=== PATIENT | female | born 1935 | race Caucasian/White ===

== ENCOUNTER → 2016-07-02 | Outpatient (CLI) | payer OTHER ==
[~2016-07-02] MED LIST: ASPI81TA28 PO; ATEN50TA8 PO; ATOR10TA82 PO; BROM0.0911 OPR; CALC1CHW2 PO; CITA10TA8 PO; CMD5 PO; COEN100C3 PO; GATI0.5S OPR; HYDR25TA5 PO; LOSA50TA6 PO; MAGN1CAP4 PO; MGNO400 PO; PRED1SUS3 OPR; WARF1TAB PO
[2016-07-02 13:17] LABS: ALT/SGPT 27 U/L (12-78); BLOOD UREA NITROGEN 17 mg/dl (7-18); BUN/CREATININE RATIO 15.5 (10-20); CARBON DIOXIDE 31 mmol/L (21-32); CHLORIDE 103 mmol/L (98-107); CHOLESTEROL 148 mg/dl (0-200); GLUCOSE 111 mg/dl (70-99); POTASSIUM 3.5 mmol/L (3.5-5.1); SODIUM 141 mmol/L (136-145); TRIGLYCERIDES 135 mg/dl (0-150); VERY LOW DENSITY LIPOPROT CALC 27 mg/dl
[2016-07-02 13:30] LABS: ALB/GLOB RATIO 1.2 (0.9-2); ALKALINE PHOSPHATASE 60 U/L (45-117); AST/SGOT 20 U/L (15-37); CHOLESTEROL/HDL RATIO 2.6; HDL CHOLESTEROL 58 mg/dl; LDL CHOLESTEROL CALCULATED 63 mg/dl
[2016-07-02 14:48] LABS: ESTIMATED AVERAGE GLUCOSE 134 mg/dl; HA1C FLAG Normal (Normal)
--- NOTE | 2016-07-08 11:23 | CODING QUERY MEDICAL NECESSITY ---
SUPPORTING DIAGNOSIS NEEDED Dr. Shah, A supporting diagnosis is required for the test/procedure performed on this patient in order for us to be reimbursed by the patient's insurance. Please provide a supporting diagnosis for the following test/procedure listed below next to the test name along with your signature. *If there is no additional diagnosis for this patient that would support the following test/procedure please document that below next to the test/procedure. Test(s)/Procedure(s) that require a supporting diagnosis: * [id number] GLYCATED HEMOGLOBIN DIAGNOSIS: DATE OF SERVICE: 07/02/16 Provider Signature: Date: Thank you Zhen Boudreaux [facility] Information Management Once completed, please kindly fax back to [phone] For questions please call [phone]
== END | disposition home or self-care (01) ==
LOC: C.LABMFLN 10:10
PROVIDERS: ATTEND Family Medicine
DX: E78.00 Pure hypercholesterolemia, unspecified (principal); I10 Essential (primary) hypertension; R73.03 Prediabetes; E83.42 Hypomagnesemia; M81.0 Age-related osteoporosis without current pathological fracture

== ENCOUNTER → 2016-07-15 | Outpatient (CLI) | payer OTHER | LOC: C.LABMFLN 08:48 | PROVIDERS: ATTEND Family Medicine | DX: R35.0 Frequency of micturition (principal) ==

== ENCOUNTER → 2016-08-01 | Outpatient (CLI) | payer OTHER ==
[2016-08-01 13:36] LABS: URINE APPEARANCE CLEAR (CLEAR); URINE BILIRUBIN NEG (NEG); URINE COLOR YELLOW; URINE EPITHELIAL CELL AUTO 20-30 /lpf (0-5); URINE NITRITE NEG (NEG); URINE SPECIFIC GRAVITY 1.015 (1.000-1.030); UROBILINOGEN NEG (NEG)
[2016-08-01 13:43] LABS: MANUAL MICROSCOPIC REQUIRED? NO; REVIEW REQ? NO
== END | disposition home or self-care (01) ==
LOC: C.LABMFLN 08:18
PROVIDERS: ATTEND Family Medicine
DX: R31.0 Gross hematuria (principal)

== ENCOUNTER → 2016-12-23 | Day surgery (SDC) | payer OTHER ==
[~2016-12-23] VITALS: Ht 157.5 cm; Wt 74.0 kg
[~2016-12-23] MED LIST changes: +FENTANYL CITRATE INJ 50 MCG/1 ML 2 ML VIAL ONE; +HEPARIN SOD (PORCINE) 1000 UNIT/ML 10 ML VIAL ONE; -MGNO400 PO; +MIDAZOLAM HCL 1 MG/ML 2ML VIAL ONE; +NITROGLYCERIN/D5W 100MCG/ML 20ML SYR ONE; +NiCARDipine HCL INJ 2.5 MG/ML 10 ML AMP ONE
[2016-12-23 10:10] VITALS: BP 170/89; PULSE 71; TEMP 36.4; O2SAT 96; Ht 157.5 cm; Wt 74.0 kg
--- NOTE | 2016-12-23 13:00 | History & Physical Bridge Note ---
H&P Re-Evaluation Bridge Note: I have examined the patient, reviewed the History & Physical and in the interval since the performance of the History & Physical I have noted the following changes of clinical significance: No changes noted
--- NOTE | 2016-12-23 13:01 | Procedure Note ---
Pre-Mod Sedation Assessment General Date of Moderate Sedation: Dec 23, 2016. Vital Signs: Vital Signs Past 12 Hours Date Time Temp Pulse Resp B/P (MAP) Pulse Ox O2 Delivery O2 Flow Rate FiO2 12/23/16 10:10 36.4 71 18 170/89 96 Room Air Review Cardiovascular: regular rate, rhythm, no edema Abdomen: normal bowel sounds, non tender Lungs: chest non-tender, lungs clear Airway Class: III Pre-Sedation Airway Assessment Oral Cavity: Capped Teeth Able to Visualize Vocal Cords: No Short Thick Neck: No Hx of Sleep Apnea: No Smoking Status: Never Smoker Mallampati Classification: Class III ASA Classification: Class III Procedure Planning Contraindications-for Mod Sed: None Yes Notes The planned sedation has been discussed with the patient and consent obtained. I have identified the patient, determined the appropriateness of sedation and have assessed the patient immediately prior to the procedure. All medicine(s) and interventions are by my order.
--- NOTE | 2016-12-23 13:38 | Procedure Note ---
Post-Mod Sedation Assessment General Date of Moderate Sedation Dec 23, 2016. Vital Signs: Vital Signs Past 12 Hours Date Time Temp Pulse Resp B/P (MAP) Pulse Ox O2 Delivery O2 Flow Rate FiO2 12/23/16 13:25 73 16 139/77 (97) 96 Room Air 12/23/16 10:10 36.4 71 18 170/89 96 Room Air Review - Discharge Criteria Vital Signs Stable: Yes Alert/Oriented/Conversant: Yes Returned to Baseline Mental St: Yes Nausea Absent/Minimal: Yes Pain/Discomfort/Absent/Minimal: Yes Normal/Baseline Respirations: Yes Active Bleeding?: No Pt Received D/C Instructions: No Prescriptions Given: None Specific Proced. D/C Criteria Distal Pulses Present (Cardiac: Yes Groin site assessed-Card Cath: N/A Voided Prior To Discharge: N/A Discharged Patients Adult Escort/Transportation: Yes
--- NOTE | 2016-12-23 13:45 | Cardiac Catheterization ---
Procedure Note Procedure Date Dec 23, 2016. Pre-Procedure Diagnosis Angina, Positive Stress Test AUC Score 7 Post-Procedure Diagnosis Normal Coronary Arteries, Normal LV Systolic Function, Normal Intracardiac Pressures Procedure(s) Performed Coronary Angiography, Left Heart Cath Actuarial Technician Antoine Manufacturing Automation Engineer(s) Matt Estimated Blood Loss 10 Medication(s) Fentanyl, Heparin, Versed, Lidocaine 1% Summary of Findings Indication: Abnormal stress test, atypical chest pain. Access: 6Fr slender right radial artery Catheters: Carlock, pigtail Findings: LM - Angiographically normal LAD - Moderate caliber vessel, mild diffuse distal disease as tapers to apex Circumflex - Moderate caliber, luminal irregularities. RCA - Dominant, luminal irregularities, mild disease in small PAV branch. LVEF 65%, no regional wall motion abnormalities. LVEDP - 16 Arterial Closure: TR Band Summary: 1. Mild non-obstructive coronary artery disease 2. Normal intracardiac filling pressure Recommendations: Continued ASCVD risk factor modification Further evaluation for non-cardiac causes of chest pain. Follow-up with Dr. Shah, Dr. Mo Hemodynamics Rest Ao: 135/72/100 Final Ao: 134/65/97 LV: 146/16 Recommendations Medical therapy and/or Counseling Specimens None Radiation Exposure (mGy) 911 Contrast (mls) 70 Visi Fluids (cc crystalloids) 10 NSS Drains None Anesthesia Moderate Procedural Complication(s) None Disposition Mobile Unit Assistant Holding/Recovery ACC Data Cardiac Status Clinical evaluation leading to the procedure CAD Presntation: Positive Stress Test Anginal Classification: CCS III Heart Failure: No, NYHA Class: CCS I Cardiogenic Shock w/in 24Hrs: No Cardiac Arrest w/in 24Hrs: No Imaging studies past 6 months: Yes Stress Testing w/SPECT MPI: Yes - Indeterminant Left Ventricular Angiography EF (%): 65 Mitral Regurgitation: None Aortography Aortic Regurgitation: None Closure Device Percutaneous Entry Location: Radial Closure Device: Radial Band Recommendations: Medical therapy and/or Counseling Intraprocedure Events Significant Dissection: No Perforation: No
--- NOTE | 2016-12-23 13:47 | Discharge Instructions ---
Discharge Instructions Procedure Procedure Date: Dec 23, 2016. Reason for Visit: Sob, *Dr Schultz Doing*. Discharge Discharge Date: Dec 23, 2016. Discharge Diagnosis: Non-cardiac chest pain Last Recorded Wt (Kilograms): 74 Anesthesia Post Anesthesia Instructions: If you have had General Anesthesia or IV Sedation: * Do not drive today. * Resume driving when surgeon permits. * Do not make important decisions or sign legal documents today. * Call surgeon for: 1. Temperature elevations greater than 101 degrees F. 2. Uncontrollable pain. 3. Excessive bleeding. 4. Persistent nausea and vomiting. 5. Medication intolerance (nausea, vomiting or rash). * For nausea and vomiting use only clear liquids such as: tea, soda, bouillon until nausea subsides, then gradually increase diet as tolerated. * If you have any concerns or questions, call your surgeon's office. If physician is unavailable and it is an emergency, call 911 or go to the nearest emergency room. Instructions Activity Recommendations: limitations as noted below Recommended Home Diet: resume previous diet Allergies: Coded Allergies: Amoxicillin (Verified Allergy, Intermediate, GI SYMPTOMS, 12/01/16) Lisinopril (Verified Allergy, Intermediate, COUGH, 12/01/16) Sulfa Antibiotics (Verified Allergy, Intermediate, RASH AND NAUSEA, ) Follow Up Additional Instructions: ACTIVITY RECOMMENDATIONS: It is common to feel weak and fatigue for a few days. * Do not drive or operate any motorized equipment for the next 2 days. * Limit stair usage (2 or 3 trips a day only) for the next 2 days. * Do not lift anything heavier than 10 pounds for the next three days. * Do not engage in vigorous exercise or any sports for the next five days. * You may shower the day after your procedure, but do not immerse the area for three days. Cleanse the site gently with soap and water. SPECIAL CARE INSTRUCTIONS: * You may replace the pressure dressing or band-aid the morning after the procedure. * After your procedure, it is normal to have a small bruise or small lump at the site. Examine your site daily for any change in the bruise or lump, redness, swelling, drainage or numbness. Notify your doctor if any change. BLEEDING: * If there is a small amount of bleeding at the site, lie down and apply firm pressure with a clean cloth for ten minutes. When the bleeding stops, lie quietly keeping the procedure limb straight for six hours. Notify your doctor as soon as possible. * If the bleeding does not stop after ten minutes or if there is a large amount of bleeding or spurting, call 911 immediately. Continue to lie down and hold firm pressure until help arrives. SKIN IRRITATION: * You may experience some redness and/or swelling in the area where radiation was administered. If any skin irritation occurs, please contact your family physician. FOLLOW UP VISIT: Keep any scheduled doctor appointments. Follow-up with: As scheduled with Dr. Shah/Dr. Chepe Melchor Recommendations: Call your doctor if: * Temperature above 101 degrees * Pain not relieved by pain medicine ordered * There is increased drainage or redness from any incision * You have any unanswered questions or concerns. Your Doctors Instructions noted above were prepared by provider Ben Schultz. Patient Signature Section: Patient Instructions Signature Page Cora Morrow Patient (or Guardian) Signature/Date: I have read and understand the instructions given to me by my caregivers. Caregiver/RN/Doctor Signature/Date: The above-named patient and/or guardian has received patient instructions on this date. + Original Patient Signature Page (only) stays with chart. Please make copy for patient.
[2016-12-23 16:00] VITALS: BP 154/68; PULSE 54; O2SAT 95
== END | disposition home or self-care (01) ==
LOC: C.CATH 09:11
PROVIDERS: ATTEND Internal Medicine Interventional Cardiology
DX: I20.9 Angina pectoris, unspecified (principal); I48.91 Unspecified atrial fibrillation; I10 Essential (primary) hypertension; R07.9 Chest pain, unspecified; F43.21 Adjustment disorder with depressed mood; M54.9 Dorsalgia, unspecified; G89.29 Other chronic pain; E78.00 Pure hypercholesterolemia, unspecified; M81.0 Age-related osteoporosis without current pathological fracture; E83.42 Hypomagnesemia; Z85.820 Personal history of malignant melanoma of skin; Z87.440 Personal history of urinary (tract) infections; Z90.710 Acquired absence of both cervix and uterus; Z96.649 Presence of unspecified artificial hip joint; Z79.82 Long term (current) use of aspirin

== ENCOUNTER → 2016-12-29 | Day surgery (SDC) | payer OTHER ==
[2016-12-01 10:44] VITALS: Ht 157.5 cm; Wt 72.7 kg
[~2016-12-29] VITALS: Ht 157.5 cm; Wt 72.7 kg
[~2016-12-29] MED LIST changes: +500ML BSS 0.3ML EPI 1:1000PF IRRIG ONE; +ACETAMINOPHEN 325 MG TAB PO PRN; +AMVISC PLUS 0.8ML SYRINGE INT OCU ONE; +ATROPINE SULFATE 0.1 MG/ML 5ML SYR IV PRN; +BRIMONIDINE TART 0.2% OP SOLN PER DROP CHARGE ONE; +BSS FLUSH ONE; +ENDOCOAT 0.85ML SYRINGE INT OCU ONE; +EpHEDrine SULFATE INJ 50 MG/ML AMP IV PRN; +EpINEphrine INJ 1MG/ML AMP 1 MG/ML AMP ONE; -FENTANYL CITRATE INJ 50 MCG/1 ML 2 ML VIAL ONE; -HEPARIN SOD (PORCINE) 1000 UNIT/ML 10 ML VIAL ONE; +LACTATED RINGER'S 1000ML 500 ML IV SCH; +LIDOCAINE 4% OP SOLN DROP CHARGE ONE; +LIDOCAINE 4% OP SOLN DROP CHARGE OPR SCH; +LIDOCAINE HCL 1% MPF 2 ML VIAL ONE; +MOXIFLOXACIN OPH SOLN PER DROP CHARGE ONE; -NITROGLYCERIN/D5W 100MCG/ML 20ML SYR ONE; -NiCARDipine HCL INJ 2.5 MG/ML 10 ML AMP ONE; +ONDANSETRON INJ 2 MG/ML 2 ML VIAL IV PRN; +POVIDONE-IODINE OP SOLN 30 ML BTL ONE; +PROPARACAINE 0.5% OP SOLN PER DROP CHARGE OPR SCH; +PROPARACAINE HCL 0.5% OP SOLN 15 ML BTL OPR ONE; +TOBRAMYCIN/DEXAMETHASONE OPH OINT PER APPLN CHARGE ONE
[2016-12-29] MEDS: PHENYLEPHRINE HCL 2.5% OP SOLN PER DROP CHARGE OPR SCH ×2 (08:39→08:44)
[2016-12-29] MEDS: TROPICAMIDE 1% OP SOLN PER DROP CHARGE OPR SCH ×2 (08:40→08:45)
[2016-12-29] MEDS: CYCLOPENTOLATE HCL 1% OP SOLN PER DROP CHARGE OPR SCH ×2 (08:41→08:46)
[2016-12-29] MEDS: KETOROLAC 0.5% OP SOLN PER DROP CHARGE OPR SCH ×2 (08:42→08:47)
[2016-12-29] MEDS: MOXIFLOXACIN OPH SOLN PER DROP CHARGE OPR SCH ×2 (08:43→08:53)
--- NOTE | 2016-12-29 10:33 | Discharge Instructions-SurgCtr ---
Discharge Instructions Date of Service Dec 29, 2016. Visit Reason for Visit: Cataract Right Eye Discharge Discharge Diagnosis / Problem: cataract right eye Discharge Goals Goal(s): Improve function Activity Recommendations Activity Limitations: per Instructions/Follow-up section Lifting Limitations: no more than 5 pounds Anesthesia . Post Anesthesia Instructions: If you have had General Anesthesia or IV Sedation: * Do not drive today. * Resume driving when surgeon permits. * Do not make important decisions or sign legal documents today. * Call surgeon for: 1. Temperature elevations greater than 101 degrees F. 2. Uncontrollable pain. 3. Excessive bleeding. 4. Persistent nausea and vomiting. 5. Medication intolerance (nausea, vomiting or rash). * For nausea and vomiting use only clear liquids such as: tea, soda, bouillon until nausea subsides, then gradually increase diet as tolerated. * If you have any concerns or questions, call your surgeon's office. If physician is unavailable and it is an emergency, call 911 or go to the nearest emergency room. . Instructions / Follow-Up Instructions / Follow-Up ACTIVITY RECOMMENDATIONS: * Light activities * You may walk outside, read, watch television. * Mild irritation and blurred vision are common for the first few days, redness around the white part of the eye is common. MEDICATIONS: Resume previous medications unless instructed otherwise by your surgeon. Eye drops (today and tomorrow): Gatifloxacin - one drop in operative eye every 2 hours while awake Prednisolone 1% - one drop in operative eye every 2 hours while awake Bromfenac - one drop in operative eye once daily SPECIAL CARE INSTRUCTIONS: * If any problems or concerns, please call Dr. Kirkpatrick's office at . * Keep plastic shield taped over eye to sleep at night. * Keep plastic shield taped over eye except to administer eye drops. * Keep plastic shield on until office visit the following day. FOLLOW UP VISIT: Follow-up with Dr. Kirkpatrick in the [place] office as scheduled. If not already scheduled, please call the office at . Diet Recommendations Home Diet: resume previous diet Procedures Procedures Performed: Right Cataract Phacoemulsification With Intraocular Lens Implant; Toric Lens Pending Studies Studies pending at discharge: no Medical Emergencies . Who to Call and When: Medical Emergencies: If at any time you feel your situation is an emergency, please call 911 immediately. . Non-Emergent Contact Non-Emergency issues call your: Club Car Attendant . . "Provider Documentation" section prepared by Rufus Kirkpatrick. .
[2016-12-29 10:34] VITALS: TEMP 36.1
--- NOTE | 2016-12-29 10:38 | [facility] Operative Report ---
Operative Report Operative Date Dec 29, 2016. Pre-Operative Diagnosis Right Eye Cataract Post-Operative Diagnosis Same Procedure(s) Performed Right Cataract Phacoemulsification With Intraocular Lens Implant; Toric Lens and femtosecond laser Surgeon Dr Kirkpatrick Software Engineer Kernel Surgeon(s) None Estimated Blood Loss 0ml Findings cataract right eye Fluids (cc crystalloids) see anesthesia record Specimens None Drains none Anesthesia local with sedation Complication(s) None Disposition Recovery Room / PACU Implants NATALEE [id number] 22.5 Indications decreased vision right eye Description of Procedure After informed consent was obtained in the holding area the patient was wheeled back to the femtosecond laser room where the right eye was docked with the laser. The laser performed the capsulorrhexis, prechop of the lens, and primary incision at the 9 o'clock position of the right eye. The patient was then taken to the operating room where cardiac monitoring leads and oxygen by nasal cannula was administered by Anesthesia. Gentle IV sedation was given, and the patient's right eye was prepped and draped in usual sterile fashion. A wire lid speculum was placed into the right eye and the operating microscope was swung into position. Using 0.12 forceps and a Supersharp blade a paracentesis port was made 2 o'clock hours away from the 9 o'clock position of the patient's right eye. 1% non-preserved Lidocaine was then injected into the anterior chamber for anesthesia. Endocoat was then injected into the anterior chamber. A 2.0 mm keratotome blade was then used to make a shelved clear corneal incision at the 9 o'clock position of the right eye. Amvisc was injected into the anterior chamber and a cystotome and Utrata forceps were used to perform a curvilinear capsulorrhexis. BSS on a hydrodissection cannula was used to hydrodissect the lens nucleus away from the capsular bag. The phacoemulsification handpiece was then used in a stop and chop fashion to remove the lens nucleus. The irrigation and aspiration handpiece was then used to remove the residual cortical material. Amvisc was injected into the capsular bag and anterior chamber and a NATALEE [id number] 22.5 Diopter intraocular lens was injected into the capsular bag. Irrigation and aspiration handpiece was used to remove the residual viscoelastic material. The lens was aligned along the 170 degree axis with corneal markings made in preop. The wounds were hydrated and noted to be watertight. The wire lid speculum was removed from the eye. Vigamox, Brimonidine, and TobraDex ointment were placed on the eye and it was shielded. It should be noted that EndoCoat was used extensively during the case to protect the cornea endothelium. DISPOSITION: The patient tolerated the procedure well and was wheeled to the post anesthesia care unit in stable condition. I attest to the content of the Intraoperative Record and any orders documented therein. Any exceptions are noted below. I attest to the content of the Intraoperative Record and any orders documented therein. Any exceptions are noted below.
[2016-12-29 10:52] VITALS: BP 135/85; PULSE 68; O2SAT 95
--- NOTE | 2016-12-29 11:14 | Anesthesia Progress Nt - [facility] ---
Anesthesia Post Op Note Date & Time Dec 29, 2016 at 11:14 Vital Signs Pain Intensity: 0 Vital Signs Past 12 Hours Date Time Temp Pulse Resp B/P (MAP) Pulse Ox O2 Delivery O2 Flow Rate FiO2 12/29/16 10:52 68 16 135/85 (102) 95 Room Air 12/29/16 10:34 36.1 90 16 139/83 (101) 95 Room Air 12/29/16 10:05 82 16 164/94 92 12/29/16 08:57 69 16 151/79 94 12/29/16 08:34 36.4 81 16 164/79 (107) 95 Room Air Notes Mental Status: alert / awake / arousable, participated in evaluation Pt Amnestic to Procedure: Yes Nausea / Vomiting: adequately controlled Pain: adequately controlled Airway Patency, RR, SpO2: stable & adequate BP & HR: stable & adequate Hydration State: stable & adequate Anesthetic Complications: no major complications apparent
== END | disposition home or self-care (01) ==
LOC: X.SURG 08:01
PROVIDERS: ATTEND Ophthalmology
DX: H25.11 Age-related nuclear cataract, right eye (principal); I10 Essential (primary) hypertension; E78.00 Pure hypercholesterolemia, unspecified; Z79.82 Long term (current) use of aspirin; Z79.899 Other long term (current) drug therapy

== ENCOUNTER → 2017-01-12 | Day surgery (SDC) | payer OTHER ==
[2017-01-07 15:03] VITALS: Ht 157.5 cm; Wt 72.7 kg
[~2017-01-12] VITALS: Ht 157.5 cm; Wt 72.7 kg
[~2017-01-12] MED LIST changes: -BROM0.0911 OPR; -GATI0.5S OPR; +LIDOCAINE 4% OP SOLN DROP CHARGE OPL SCH; -LIDOCAINE 4% OP SOLN DROP CHARGE OPR SCH; -ONDANSETRON INJ 2 MG/ML 2 ML VIAL IV PRN; -PRED1SUS3 OPR; +PROPARACAINE 0.5% OP SOLN PER DROP CHARGE OPL SCH; -PROPARACAINE 0.5% OP SOLN PER DROP CHARGE OPR SCH; +PROPARACAINE HCL 0.5% OP SOLN 15 ML BTL OPL ONE; -PROPARACAINE HCL 0.5% OP SOLN 15 ML BTL OPR ONE; -WARF1TAB PO
[2017-01-12] MEDS: PHENYLEPHRINE HCL 2.5% OP SOLN PER DROP CHARGE OPL SCH ×2 (07:23→07:28)
[2017-01-12] MEDS: TROPICAMIDE 1% OP SOLN PER DROP CHARGE OPL SCH ×2 (07:24→07:29)
[2017-01-12] MEDS: CYCLOPENTOLATE HCL 1% OP SOLN PER DROP CHARGE OPL SCH ×2 (07:25→07:30)
[2017-01-12] MEDS: KETOROLAC 0.5% OP SOLN PER DROP CHARGE OPL SCH ×2 (07:26→07:35)
[2017-01-12] MEDS: MOXIFLOXACIN OPH SOLN PER DROP CHARGE OPL SCH ×2 (07:27→07:37)
--- NOTE | 2017-01-12 08:50 | Discharge Instructions-SurgCtr ---
Discharge Instructions Date of Service Jan 12, 2017. Visit Reason for Visit: Cataract Left Eye Discharge Discharge Diagnosis / Problem: cataract left eye Discharge Goals Goal(s): Improve function Medications Stopped Medications Name(s): Only took two medications this morning. Activity Recommendations Activity Limitations: per Instructions/Follow-up section Lifting Limitations: no more than 5 pounds Anesthesia . Post Anesthesia Instructions: If you have had General Anesthesia or IV Sedation: * Do not drive today. * Resume driving when surgeon permits. * Do not make important decisions or sign legal documents today. * Call surgeon for: 1. Temperature elevations greater than 101 degrees F. 2. Uncontrollable pain. 3. Excessive bleeding. 4. Persistent nausea and vomiting. 5. Medication intolerance (nausea, vomiting or rash). * For nausea and vomiting use only clear liquids such as: tea, soda, bouillon until nausea subsides, then gradually increase diet as tolerated. * If you have any concerns or questions, call your surgeon's office. If physician is unavailable and it is an emergency, call 911 or go to the nearest emergency room. . Instructions / Follow-Up Instructions / Follow-Up ACTIVITY RECOMMENDATIONS: * Light activities * You may walk outside, read, watch television. * Mild irritation and blurred vision are common for the first few days, redness around the white part of the eye is common. MEDICATIONS: Resume previous medications unless instructed otherwise by your surgeon. Eye drops (today and tomorrow): Gatifloxacin - one drop in operative eye every 2 hours while awake Prednisolone 1% - one drop in operative eye every 2 hours while awake Bromfenac - one drop in operative eye once daily SPECIAL CARE INSTRUCTIONS: * If any problems or concerns, please call Dr. Kirkpatrick's office at . * Keep plastic shield taped over eye to sleep at night. * Keep plastic shield taped over eye except to administer eye drops. * Keep plastic shield on until office visit the following day. FOLLOW UP VISIT: Follow-up with Dr. Kirkpatrick in the [place] office as scheduled. If not already scheduled, please call the office at . Diet Recommendations Home Diet: resume previous diet Procedures Procedures Performed: Left Cataract Phacoemulsification With Intraocular Lens Implant; Toric Lens Pending Studies Studies pending at discharge: no Medical Emergencies . Who to Call and When: Medical Emergencies: If at any time you feel your situation is an emergency, please call 911 immediately. . Non-Emergent Contact Non-Emergency issues call your: Production Engineer Track . . "Provider Documentation" section prepared by Rufus Kirkpatrick. .
--- NOTE | 2017-01-12 08:55 | [facility] Operative Report ---
Operative Report Operative Date Jan 12, 2017. Pre-Operative Diagnosis Left eye cataract Post-Operative Diagnosis Same as preop Procedure(s) Performed Left Cataract Phacoemulsification With Intraocular Lens Implant; Toric Lens and femtosecond laser Surgeon Dr. Kirkpatrick Thoracic Surgeon Surgeon(s) None Estimated Blood Loss 0 mL Findings cataract left eye Fluids (cc crystalloids) see anesthesia record Specimens None Drains none Anesthesia local with sedation Complication(s) None Disposition Recovery Room / PACU Implants NATALEE [id number] 23.0 Indications decreased vision left eye Description of Procedure After informed consent was obtained in the holding area the patient was wheeled back to the femtosecond laser room where the left eye was docked with the femtosecond laser. The primary incision at the 3 o'clock position of the left eye as well as the capsulorrhexis and prechop of the lens was performed by the laser. The patient was then taken to the operating room where cardiac monitoring leads and oxygen by nasal cannula was administered by Anesthesia. Gentle IV sedation was given, and the patient's left eye was prepped and draped in usual sterile fashion. A wire lid speculum was placed into the left eye and the operating microscope was swung into position. Using 0.12 forceps and a Supersharp blade a paracentesis port was made 2 o'clock hours away from the 3 o'clock position of the patient's left eye. 1% non-preserved Lidocaine was then injected into the anterior chamber for anesthesia. Endocoat was then injected into the anterior chamber. A Scott spatula was then used to enter the corneal incision at the 3 o'clock position of the left eye. Amvisc was injected into the anterior chamber and Utrata forceps were used to remove the curvilinear capsulorrhexis. BSS on a hydrodissection cannula was used to hydrodissect the lens nucleus away from the capsular bag. The phacoemulsification handpiece was then used in a stop and chop fashion to remove the lens nucleus. The irrigation and aspiration handpiece was then used to remove the residual cortical material. Amvisc was injected into the capsular bag and anterior chamber and a NATALEE [id number] 23.0 Diopter intraocular lens was injected into the capsular bag. Irrigation and aspiration handpiece was used to remove the residual viscoelastic material. The lens was aligned with preop corneal markings along the 4 degree axis. The wounds were hydrated and noted to be watertight. The wire lid speculum was removed from the eye. Vigamox, Brimonidine, and TobraDex ointment were placed on the eye and it was shielded. It should be noted that EndoCoat was used extensively during the case to protect the cornea endothelium. DISPOSITION: The patient tolerated the procedure well and was wheeled to the post anesthesia care unit in stable condition. I attest to the content of the Intraoperative Record and any orders documented therein. Any exceptions are noted below. I attest to the content of the Intraoperative Record and any orders documented therein. Any exceptions are noted below.
[2017-01-12 09:05] VITALS: BP 164/92; PULSE 66; TEMP 36.4; O2SAT 95
--- NOTE | 2017-01-12 09:09 | Anesthesia Progress Nt - [facility] ---
Anesthesia Post Op Note Date & Time Jan 12, 2017 at 09:09 Vital Signs Pain Intensity: 0 Vital Signs Past 12 Hours Date Time Temp Pulse Resp B/P (MAP) Pulse Ox O2 Delivery O2 Flow Rate FiO2 01/12/17 09:05 36.4 66 20 164/92 (116) 95 Room Air 01/12/17 08:52 36.3 75 16 145/83 (103) 97 Room Air 01/12/17 08:19 67 93 117/83 18 01/12/17 08:11 68 93 163/92 16 01/12/17 07:09 36.5 66 18 150/91 (110) 97 Room Air Notes Mental Status: alert / awake / arousable, participated in evaluation Pt Amnestic to Procedure: Yes Nausea / Vomiting: adequately controlled Pain: adequately controlled Airway Patency, RR, SpO2: stable & adequate BP & HR: stable & adequate Hydration State: stable & adequate Anesthetic Complications: no major complications apparent
== END | disposition home or self-care (01) ==
LOC: X.SURG 06:55
PROVIDERS: ATTEND Ophthalmology
DX: H26.9 Unspecified cataract (principal); I10 Essential (primary) hypertension; I48.91 Unspecified atrial fibrillation; E78.00 Pure hypercholesterolemia, unspecified; Z90.710 Acquired absence of both cervix and uterus; Z96.642 Presence of left artificial hip joint; Z85.828 Personal history of other malignant neoplasm of skin; Z88.0 Allergy status to penicillin; Z88.2 Allergy status to sulfonamides

== ENCOUNTER → 2017-02-06 | Outpatient (CLI) | payer OTHER ==
[~2017-02-06] MED LIST changes: -500ML BSS 0.3ML EPI 1:1000PF IRRIG ONE; -ACETAMINOPHEN 325 MG TAB PO PRN; -AMVISC PLUS 0.8ML SYRINGE INT OCU ONE; -ATROPINE SULFATE 0.1 MG/ML 5ML SYR IV PRN; -BRIMONIDINE TART 0.2% OP SOLN PER DROP CHARGE ONE; -BSS FLUSH ONE; -ENDOCOAT 0.85ML SYRINGE INT OCU ONE; -EpHEDrine SULFATE INJ 50 MG/ML AMP IV PRN; -EpINEphrine INJ 1MG/ML AMP 1 MG/ML AMP ONE; -LACTATED RINGER'S 1000ML 500 ML IV SCH; -LIDOCAINE 4% OP SOLN DROP CHARGE ONE; -LIDOCAINE 4% OP SOLN DROP CHARGE OPL SCH; -LIDOCAINE HCL 1% MPF 2 ML VIAL ONE; -MIDAZOLAM HCL 1 MG/ML 2ML VIAL ONE; -MOXIFLOXACIN OPH SOLN PER DROP CHARGE ONE; -POVIDONE-IODINE OP SOLN 30 ML BTL ONE; -PROPARACAINE 0.5% OP SOLN PER DROP CHARGE OPL SCH; -PROPARACAINE HCL 0.5% OP SOLN 15 ML BTL OPL ONE; -TOBRAMYCIN/DEXAMETHASONE OPH OINT PER APPLN CHARGE ONE
[2017-02-06 18:03] LABS: BASO % 0.5 %; BASO ABS # 0.03 K/uL (0-0.2); COMPLETE YES; EOS % 1.4 %; IG% 0.8 %; LYMPH % 21.8 %; LYMPH ABS # 1.39 K/uL (1.2-3.4); MEAN CELL VOLUME 94.1 fL (80-100); MEAN CORPUSCULAR HEMOGLOBIN 31.8 pg (25-34); MEAN CORPUSCULAR HGB CONC 33.8 g/dl (32-36); MEAN PLATELET VOLUME 9.6 fL (7.4-10.4); MONO % 13.7 %; NEUT % 61.8 %; PLATELET COUNT 346 K/uL (130-400); RED BLOOD COUNT 3.93 M/uL (4.2-5.4); WHITE BLOOD COUNT 6.37 K/uL (4.8-10.8)
== END | disposition home or self-care (01) ==
LOC: C.LABMFLN 16:04
PROVIDERS: ATTEND Family Medicine
DX: I48.91 Unspecified atrial fibrillation (principal)

== ENCOUNTER → 2017-07-02 | Outpatient (CLI) | payer OTHER ==
[2017-07-02 17:50] LABS: BASO % 0.3 %; BASO ABS # 0.02 K/uL (0-0.2); EOS % 2.1 %; EOS ABS # 0.15 K/uL (0-0.5); HEMATOCRIT 39.7 % (37-47); HEMOGLOBIN 13.4 g/dL (12.0-16.0); IG# 0.02 K/uL (0.00-0.02); LYMPH % 24.5 %; LYMPH ABS # 1.74 K/uL (1.2-3.4); MEAN CELL VOLUME 95.7 fL (80-100); MEAN CORPUSCULAR HEMOGLOBIN 32.3 pg (25-34); MEAN CORPUSCULAR HGB CONC 33.8 g/dl (32-36); MEAN PLATELET VOLUME 10.4 fL (7.4-10.4); MONO % 14.1 %; NEUT % 58.7 %; NEUT ABS # 4.18 K/uL (1.4-6.5); PLATELET COUNT 206 K/uL (130-400); RED CELL DISTRIBUTION WIDTH SD 45.4 fL (36.4-46.3); WHITE BLOOD COUNT 7.11 K/uL (4.8-10.8)
[2017-07-02 18:35] LABS: ALBUMIN 3.4 gm/dl (3.4-5.0); ALT/SGPT 41 U/L (12-78); AST/SGOT 28 U/L (15-37); BLOOD UREA NITROGEN 17 mg/dl (7-18); CALCIUM 9.3 mg/dl (8.5-10.1); CARBON DIOXIDE 32 mmol/L (21-32); CHOLESTEROL 119 mg/dl (0-200); CREATININE 1.04 mg/dl (0.60-1.20); GLUCOSE 79 mg/dl (70-99); POTASSIUM 3.6 mmol/L (3.5-5.1); SODIUM 136 mmol/L (136-145)
[2017-07-02 18:39] LABS: ALKALINE PHOSPHATASE 55 U/L (45-117); LDL CHOLESTEROL CALCULATED 45 mg/dl; TOTAL PROTEIN 6.6 gm/dl (6.4-8.2)
== END | disposition home or self-care (01) ==
LOC: C.LABMFLN 13:27
PROVIDERS: ATTEND Family Medicine
DX: E78.00 Pure hypercholesterolemia, unspecified (principal); I10 Essential (primary) hypertension; R73.03 Prediabetes; E83.42 Hypomagnesemia; I48.91 Unspecified atrial fibrillation

== ENCOUNTER → 2017-10-26 | Outpatient (CLI) | payer OTHER ==
[2017-10-26 13:00] LABS: ALBUMIN 3.3 gm/dl (3.4-5.0); ALKALINE PHOSPHATASE 60 U/L (45-117); ALT/SGPT 48 U/L (12-78); AST/SGOT 29 U/L (15-37); BLOOD UREA NITROGEN 19 mg/dl (7-18); CARBON DIOXIDE 31 mmol/L (21-32); CHOLESTEROL 117 mg/dl (0-200); GLUCOSE 103 mg/dl (70-99); LDL CHOLESTEROL CALCULATED 52 mg/dl; POTASSIUM 3.5 mmol/L (3.5-5.1); SODIUM 142 mmol/L (136-145); TOTAL PROTEIN 6.3 gm/dl (6.4-8.2)
[2017-10-26 13:18] LABS: HEMOGLOBIN A1C 6.5 % (4.5-5.6)
== END | disposition home or self-care (01) ==
LOC: C.LABMFLN 08:06
PROVIDERS: ATTEND Family Medicine
DX: E78.00 Pure hypercholesterolemia, unspecified (principal); I10 Essential (primary) hypertension; R73.03 Prediabetes; E83.42 Hypomagnesemia; I48.91 Unspecified atrial fibrillation

== ENCOUNTER 2020-05-09 06:44 | Observation (INO) ==
--- NOTE | 2020-05-04 10:20 | Anesthesiology Consultation ---
Date of Service May 04, 2020 Assessment & Plan (1) Encounter for pre-operative examination: Case was originally scheduled for 02/13/2021, rescheduled to 05/09/2020 due to COVID-19 pandemic and surge capacity protocols. Patient was seen by me in PAT 01/13/2020. COVID Status: As of 05/02 nurse assessment, patient denies travel to endemic area, known exposure/sick contacts, or symptoms of COVID19. Patient is a resident at [facility], and resides in a cottage. Spoke to the facility, they have 1-2 cases of COVID currently in the main building, but since the patient resides in a cottage she would have no interaction with anyone in the main facility (no communal dining). Preoperative COVID19 testing completed on 05/03 at [facility] results pending. PCP Clearance 05/02/20: 1. For R total hip replacement by Dr. Jaime Molina on Thursday [sic]. Take just the atenolol with a small sip of water the morning of the surgery. You are to get a Covid test tomorrow with repeat blood work. 2. For the L shoulder pain the safest medication is Acetaminophen 650 mg 2 pills 2 x daily as needed. Could substitute 1 or 2 of the Tylenol PM at bedtime. Another alternative would be to take Benadryl which is the same as diphenhydramine 25 mg 1 or 2 pills at bedtime along with your Tylenol arthritis. 3. For the a fib and coronary artery disease these are stable. There is tricuspid valve regurgitation or backflow. Dr. Eddy is following this with the echocardiograms. 4. For the diet-controlled diabetes and cholesterol the labs look good on November 14. We will recheck hemoglobin A1C with labs for Dr. Wolf tomorrow [A1C stable at 7.1%] 5. For blood pressure was well controlled after sitting. Continue the losartan and HCT. 6. Follow-up in mid May to make sure you are doing well after your hip surgery. Please call sooner if any problems or worsening." Chart Review Chart Review: Acceptable Risk for Surgery and data entry representative initiated History Surgery Operation Date: 05/09/20 08:50 Proposed Procedures p Right Total Hip Arthroplasty - Star Wolf MD Height/Weight Height: 5 ft 2 in Weight: 76.657 kg Allergies Allergy/AdvReac Type Severity Reaction Status Date / Time Sulfa (Sulfonamide Allergy Intermediate RASH AND Verified 05/09/20 07:22 Antibiotics) NAUSEA amoxicillin AdvReac Intermediate GI SYMPTOMS Verified 05/09/20 07:22 lisinopril AdvReac Intermediate COUGH Verified 05/09/20 07:22 citalopram AdvReac severe Verified 05/09/20 07:22 fatigue Medications Home Medications Medication Instructions Recorded Confirmed Last Taken atorvastatin 10 mg PO HS 01/10/20 05/09/20 05/08/20 19:00 calcium carbonate-vitamin D3 1 tab PO QAM 01/10/20 05/09/20 05/08/20 09:00 [Calcium 500 With D] hydrochlorothiazide 25 mg PO QA 01/10/20 05/09/20 05/08/20 09:00 losartan 100 mg PO QAM 01/10/20 05/09/20 05/08/20 09:00 magnesium oxide 400 mg PO QA 01/10/20 05/09/20 05/08/20 09:00 potassium chloride 10 meq PO [facility] 01/10/20 05/09/20 05/08/20 09:00 niacinamide 500 mg tablet 500 mg PO BID 01/13/20 05/09/20 05/08/20 17:00 apixaban 5 mg tablet 5 mg PO BID #180 tab 03/29/20 05/09/20 05/04/20 atenolol 100 mg tablet 100 mg PO BID #180 tab 03/29/20 05/09/20 05/09/20 05:00 duloxetine 30 mg PO QAM 05/02/20 05/09/20 05/08/20 09:00 Active Medications Generic Name Dose Route Start Last Admin Trade Name Freq PRN Reason Stop Dose Admin Acetaminophen 1,000 mg 05/09/20 06:00 05/09/20 07:59 Acetaminophen 500 Mg Tab PO 05/09/20 18:00 1,000 mg PREOP BUBBA Administration Famotidine 20 mg 05/09/20 06:00 05/09/20 07:58 Famotidine 20 Mg Tab PO 05/09/20 18:00 20 mg PREOP BUBBA Administration Gabapentin 300 mg 05/09/20 06:00 05/09/20 07:59 Gabapentin 300 Mg Cap PO 05/09/20 18:00 300 mg PREOP BUBBA Administration Lactated Ringer's 1,000 mls @ 15 mls/hr 05/09/20 06:00 05/09/20 07:38 Lr IV 05/09/20 18:00 15 mls/hr .Q24H BUBBA Administration Lactated Ringer's 1,000 mls @ 60 mls/hr 05/09/20 06:00 05/09/20 07:08 Lr IV 05/09/20 22:39 Not Given .[id number] BUBBA Metoclopramide HCl 10 mg 05/09/20 06:00 05/09/20 07:58 Metoclopramide Hcl 10 Mg Tablet PO 05/09/20 18:00 10 mg PREOP BUBBA Administration Past Medical History Medical History Adjustment disorder with depressed mood Atrial fibrillation Permanent. On eliquis - follows w/ dr. eddy Benign essential hypertension CAD (coronary artery disease) s/p cardiac cath 2017 @ [facility], "Mild non-obstructive coronary artery disease" Chronic back pain Controlled diabetes mellitus PCP monitoring, "diet controlled." Degenerative joint disease of right hip Herniated intervertebral disc History of basal cell carcinoma History of SCC (squamous cell carcinoma) of skin Hyperlipidemia Osteoarthritis of right hip Osteoporosis Tricuspid valve insufficiency MODERATE-SEVERE ON 01/2019 ECHO. Asymptomatic. Cardio monitoring, will rpt echo ~04/2020 Urinary incontinence Past Family History Family History Mother Diabetes Cerebral infarction Hypertension Brother Diabetes Hypertension Other No family history of adverse response to anesthesia Past Surgical History Surgical History History of cardiac catheterization 2016 [facility] no stents History of cataract surgery History of cholecystectomy History of colonoscopy History of hysterectomy History of left hip replacement History of Mohs micrographic surgery for skin cancer History of tonsillectomy History of tooth extraction History of tubal ligation Social History Smoking Status: Never smoker Do You Dip or Chew Tobacco: No Hx Alcohol Use: Yes Alcohol type: wine alcohol intake frequency: holidays/special occasions only Hx Substance Use: No substance use type: does not use Physical Exam Vital Signs Last Vital Signs Temp 36.5 C 05/09/20 07:13 Pulse 94 H 05/09/20 07:13 Resp 18 05/09/20 07:13 BP 177/98 H 05/09/20 07:55 Pulse Ox 98 05/09/20 07:13 Testing Laboratory Results Blood Type A Positive 05/03/20 08:12 Antibody Screen NEGATIVE 05/03/20 08:12 05/03/20 WBC: 5.73 H/H: 13.7/40.7 PLATELETS: 239 SODIUM: 141 POTASSIUM: 3.6 CHLORIDE: 105 CO2: 29 BUN: 21 CREATININE: 1.32 GLUCOSE: 125 PT: 10.8 PTT: 28.5 INR: 1.1 A1C: 7.1% Electrocardiogram Date: 01/13/20 Findings: + AFIB @ (77bpm) Chest X-Ray Date: 01/13/20 Findings: + NAD Other Testing Echocardiogram Date: 02/08/19 EF: 60-65% Normal LV size and systolic function. No regional wall motion abnormalities. Mild concentric LVH. Mildly dilated right ventricle. Moderate biatrial dilation. Mild mitral regurgitation. Moderate to severe tricuspid regurgitation. Top-normal right ventricular systolic pressure at 36 mmHg. No prior study available for cytocide comparison. Stress Test Date: 01/13/18 Type: nuclear SUMMARY: 1. Normal myocardial perfusion with no exercise/Lexiscan induced ischemia. 2. Normal LV size and function. LVEF 77 % with no regional wall motion abnormalities. 3. Non-diagnostic stress ECG due to inability to reach target HR with exercise/Lexiscan. Average functional capacity. Cardiac Catheterization Date: 12/23/16 Findings: LM - Angiographically normal LAD - Moderate caliber vessel, mild diffuse distal disease as tapers to apex Circumflex - Moderate caliber, luminal irregularities. RCA - Dominant, luminal irregularities, mild disease in small PAV branch. LVEF 65%, no regional wall motion abnormalities. LVEDP - 16 Arterial Closure: TR Band Summary: 1. Mild non-obstructive coronary artery disease 2. Normal intracardiac filling pressure Recommendations: Continued ASCVD risk factor modification Further evaluation for non-cardiac causes of chest pain.
--- NOTE | 2020-05-05 10:50 | History and Physical Report ---
DATE OF ADMISSION: 05/09/2020 CHIEF COMPLAINT: Right hip and groin pain. HISTORY OF PRESENT ILLNESS: The patient is an 84-year-old female who presents specifically for surgical treatment of her right hip. She has a several year history of increasing right hip pain and discomfort that has gotten significantly worse over the past year and a half. She has been through extensive evaluation and treatment by a spine clinic at [facility] as well as multiple other doctors. She has had several shots, which really have not helped much. She has had to resort to using a cane for the past year. Pain is mostly groin pain. She does have some chronic back pain. She lives by herself and having more difficulty doing this. She used to walk 3 miles a day, but cannot walk 3 blocks now. She would like to have her hip fixed. PAST MEDICAL HISTORY: 1. Atrial fibrillation, on Eliquis. 2. Hypertension. 3. Skin cancer. 4. Elevated cholesterol. 5. Low back pain/sciatica. 6. Mild obesity. PAST SURGICAL HISTORY: 1. Left total hip replacement done in [facility] in 2011. 2. Hysterectomy. 3. Cholecystectomy. ALLERGIES: AMOXICILLIN, SULFA, LISINOPRIL. CURRENT MEDICINES: 1. Calcium. 2. Hydrochlorothiazide. 3. Niacinamide. 4. Potassium chloride. 5. Magnesium. 6. Atenolol. 7. Losartan. 8. Lipitor. 9. Eliquis 5 mg twice a day. SOCIAL HISTORY: An 84-year-old female. Lives in [place]. She has been twice. Does not smoke. She lives alone. Alcohol intake is rare. Three children. FAMILY HISTORY: Significant for heart disease and diabetes. REVIEW OF SYSTEMS: Significant for atrial fibrillation, on Eliquis. Denies any chest pain or shortness of breath. No history of DVT or PE. No known bleeding problems. PHYSICAL EXAMINATION GENERAL: Shows a pleasant elderly female. Looks to be in pretty good health. HEENT: Benign. NECK: Supple, no lymphadenopathy. LUNGS: Clear to auscultation. HEART: Regular rate and rhythm. ABDOMEN: Soft, nontender, nondistended. EXTREMITIES: Grossly neurovascularly intact except as follows. Examination of the right hip reveals the patient walks with an antalgic gait. She is using a cane. Leg lengths appear pretty equal. She has marked pain with any type of internal rotation. She can internally rotate to neutral. Negative straight leg raise. She is neurologically intact. No knee effusion. X-RAYS: X-rays of the right hip were reviewed. It shows advanced right hip DJD. There is still some remaining cartilage space available. MRI: MRI from [facility] was also reviewed. She has extensive bone marrow edema in the femoral head. She has got joint effusion. She has got bone marrow changes of the acetabulum. ASSESSMENT: An 84-year-old female with history of atrial fibrillation with several year history of hip pain that has increased over the past year and a half. It does seem to be coming from her hip joint. The MRI is more impressive than her plain x-rays. She is quite limited by this and having difficulty living by herself and would like to have her hip fixed. PLAN: We are going to proceed with right total hip replacement. The risks and benefits of right total hip replacement were explained to the patient including but not limited to DVT, PE, , infection, neurological injury, vascular injury, bleeding problem, pain, limited range of motion, stiffness, failure to relieve symptoms, incomplete relief of symptoms, need for further surgery in future, fracture, leg length inequality, nerve palsy, dislocation, persistent pain, etc. The patient understands and desires to proceed. Informed consent was obtained. She knows to hold her Eliquis 3 days preop. She will take her atenolol the morning of surgery. She is hoping to be discharged to [facility] for a rehab/long term facility stay as she lives alone. I did talk to her about her increased risk of dislocation, she will have to be careful postoperatively and obey hip precautions. We will have a cemented stem available if needed.
[~2020-05-09 06:44] MED LIST changes: +ACETAMINOPHEN 500 MG TAB PO SCH; -ASPI81TA28 PO; -ATEN50TA8 PO; -ATOR10TA82 PO; +BUPIVACAINE 0.5 % 5 MG/1 ML PF 10ML VIAL ONE; -CALC1CHW2 PO; -CITA10TA8 PO; -CMD5 PO; -COEN100C3 PO; +FAMOTIDINE 20 MG TAB PO SCH; +GABAPENTIN 300 MG CAP PO SCH; -HYDR25TA5 PO; -LOSA50TA6 PO; +LR 15ML/HR IV SCH; +LR 500ML BOLUS, THEN 15ML/HR IV SCH; -MAGN1CAP4 PO; +METOCLOPRAMIDE HCL 10 MG TABLET PO SCH; +TRANEXAMIC ACID 1,000 MG **IV Pre-op IV SCH; +ceFAZolin 2000MG 2,000 MG/15 ML SYR IV SCH
--- NOTE | 2020-05-09 06:49 | History & Physical Bridge Note ---
Date of Service May 09, 2020 History & Physical Bridge Note I have examined the patient, reviewed the History & Physical and in the interval since the performance of the History & Physical I have noted the following changes of clinical significance: no changes noted
[2020-05-09] MEDS ORDERED: PROPOFOL IV EMULSION 10 MG/ML 20 ML VIAL IV ONE (07:26)
[2020-05-09] MEDS ORDERED: LIDOCAINE HCL 2% 2 ML VIAL/AMP(20MG/ML) INFIL ONE (07:26)
[2020-05-09] MEDS ORDERED: fentaNYL citrate 100 MCG/2 ML VIAL ONE (07:26)
[2020-05-09] MEDS ORDERED: MIDAZOLAM HCL 1 MG/ML 2ML VIAL ONE (07:27)
[2020-05-09] MEDS ORDERED: MoRPHine SULFATE PF 1 MG/ML 10 ML AMP/VIAL ONE (07:27)
[2020-05-09] MEDS ORDERED: BACITRACIN INJ 50,000 UNIT VIAL ONE (08:37)
[2020-05-09] MEDS ORDERED: ePHEDrine sulfate 50 MG/ML AMP IV PRN ×2 (08:37→18:38)
[2020-05-09] MEDS ORDERED: BUPIVACAINE/EPINEPHRINE 0.5% MPF 1:200,000 30 ML VIAL ONE (08:37)
[2020-05-09] MEDS ORDERED: ATROPINE SULFATE 0.1 MG/ML 10ML SYR IV PRN (08:37)
[2020-05-09] MEDS ORDERED: BACITRACIN OINT 15 GM TUBE ONE (10:33)
--- NOTE | 2020-05-09 10:53 | Operative Report ---
Post Operative Report Pre & Post Diagnosis Operation Date: 05/09/20 08:50 Pre-Op Diagnosis: Right Hip Degenerative Joint Disease Post-Op Diagnosis: Right Hip Degenerative Joint Disease I identified the patient and participated in the time-out.: Yes Procedure Operation Date: 05/09/20 08:50 Actual Procedures p Right Total Hip Arthroplasty--Uncemented(Right) - Star Wolf MD Surgeon Star Wolf MD Technology Internship MARNI Downing Estimated Blood Loss 200 Findings Consistent with Post-Op Diagnosis Operative findings revealed grade 4 [id number] disease with articular wear of the femoral head as well as the acetabulum. As she did have an anterior acetabular wall deficiency. Not much in the way of osteophyte formation. Small joint effusion. Some moderate synovitis. Fluids 1300 cc. Specimens Right femoral head sent for pathology. Drains None. Anesthesia Type Spinal MAC Complications none Disposition Accompanied Patient To Recovery: Yes Disposition: Recovery Room Indications Patient is an 84-year-old fairly independent female lives by herself who is had a about a year history of increasing right hip pain discomfort is gradually gotten worse over time. She became pretty miserable with this to the point where she had to use a cane and assistance device to get around. She has having trouble living by herself. X-rays show some moderate hip arthritis. She did have an MRI which showed more extensive arthritic change with bone marrow edema. She failed conservative measures and elected proceed with a right total hip arthroplasty. Description of Procedure Operative implants consist of: 1. Biomet G7 size 52 mm acetabular shell. 2. 6.5 cancellous acetabular screws 135 mm in length and 1 of 30 mm length. 3. [place] hole money manager. 4. Highly cross-linked polyethylene liner with a 52 mm outer diameter and 36 mm inner diameter. 5. See Corail size 10 KLA femoral stem with short neck. 6. +5/36 mm ceramic articular ball. The patient was taken the operating identified and placed on the operating table supine position but all contact areas were appropriately padded. IV antibiotics 5 by anesthesia team. Spinal anesthetic had been implemented holding area. Bryant catheter was placed in sterile fashion. Patient then placed in the left lateral decubitus position. An axillary roll was placed. A Stulberg hip positioner was used for positioning. The right hip and leg were then prepped and draped in usual sterile fashion. A posterior lateral approach to the right hip was then performed to a curvilinear incision centered over the greater trochanter. Sharp dissection was got through subcutaneous tissue down to level the IT band gluteal fascia the IT band gluteal fascia were incised longitudinally in line with skin incision. The underlying greater trochanter bursa was excised. The piriformis and external rotators and the posterior capsule were then released from the posterior aspect of the hip joint as a single layer. Great care was taken throughout the procedure protect the sciatic nerve at all times. The hip was internally rotated and dislocated. A femoral neck osteotomy cut was made with Final Cut about 10 mm above the lesser trochanter. Femoral head was removed and sent for pathology. Attention drawn the acetabulum. The acetabular labrum was excised. The pulmonary fat was excised. Sequential reaming the acetabular was then performed begin with size 43 and progressing up to a 51. A 52 mm Biomet G7 acetabular shell was then placed in about 40 degrees lateral opening and 20 degrees of anteversion. Was fixed with two 6.5 cancellous acetabular screws. A trial liner was placed. Of note she did have an anterior acetabular wall deficiency at the inferior aspect. Despite this we got a good press-fit. Attention drawn the femur. The proximal femur was entered with a cookie-cutter followed by canal finder. I broached begin the size 8 and progressing up to 10. It was pretty tight of the tendon with her age I was concerned about stress and the bone too much with a larger implant and we elected to stop there. We had good rotational control. The calcar reamer was used to smooth and off the calcar. I then trialed the hip initially with a standard neck and it was just really tight in extension. Of note, her hip was tight in extension to start out. We placed a short neck and I then created leg lengths equal, much less tension on the anterior joint capsule with full hip extension and flexion instability to 90 degrees of internal rotation over [address] these implants. All trial implants were removed. An apex hole money manager was placed. Highly cross-linked polyethylene liner was placed. A De[place]uy size 10 KLA femoral stem with a short neck was impacted in position. +5/36 mm ceramic articular ball was placed. Hip was located once again found to be stable. Attention drawn toward closing. The wounds irrigated scope soft pulsatile lavage solution. I did inject locally with 60 cc of absent Marcaine with epinephrine. Patient did receive 1 g tranexamic acid. The wound was extensively irrigated. The posterior capsule and external rotators were repaired through drill holes in the posterior trochanter as a single layer with #2 Tycron suture. The IT band gluteal fascia then closed in 1 PDS suture running fashion for subcutaneous tissue then closed with 2 layers the deep layer #1 Vicryl suture and subcutaneous tissue with 2 D exon suture in a buried interrupted fashion the skin was closed skin jamee. Leg was then cleaned dried a sterile dressing both Xeroform, 4 x 4's, ABD pad, foam tape was applied. Patient then transferred to the recovery room in stable condition. Patient tolerated procedure well no complications. Parker Downing, my physician senior administrative assistant, was present for the entire procedure. His assistance was essential and required for appropriate patient positioning, prepping and draping, surgical exposure, performing the technical details of the operation, placement the implants, closure of the wound, and placement of the sterile bandage. I attest to the content of the Intraoperative Record and any orders documented therein. Any exceptions are noted below.
--- NOTE | 2020-05-09 11:11 | Anesthesiology Progress Note ---
Date of Service May 09, 2020 Anesthesia Post Procedure Vital Signs Vital Signs: Temp Pulse Pulse Resp BP BP Pulse Ox 05/09/20 11:00 36.4 C L 80 18 101/52 L 96 05/09/20 10:50 78 18 113/63 99 05/09/20 10:42 36.7 C 79 18 115/77 95 05/09/20 07:55 177/98 H 05/09/20 07:13 36.5 C 94 H 18 98 Pain Intensity Right Hip: Pain Intensity: 3 Transfer of Care Handoff Completed per policy Notes Mental Status: alert / awake / arousable and participated in evaluation Nausea / Vomiting: adequately controlled Pain: adequately controlled Airway Patency, RR, SpO2: stable & adequate BP & HR: stable & adequate Hydration State: stable & adequate Neuraxial Anesthesia: was administered and sensory block is resolving Anesthetic Complications: no major complications apparent and Pt Satisfied with anesthetic care
[2020-05-09] MEDS ORDERED: bisacodyL 10 MG SUPP PR PRN (11:26)
[2020-05-09] MEDS ORDERED: MAGNESIUM HYDROXIDE SUSP 30 ML UDC PO PRN (11:26)
[2020-05-09] MEDS ORDERED: traMADol HCL 50 MG TABLET PO PRN (11:26)
[2020-05-09] MEDS ORDERED: ALUMINUM/MAGNESIUM SUSP 30 ML UDC PO PRN (11:26)
[2020-05-09] MEDS ORDERED: NO NSAIDS SCH (11:26)
[2020-05-09] MEDS ORDERED: METOCLOPRAMIDE HCL INJ 5 MG/ML 2 ML VIAL IV PRN (11:26)
[2020-05-09] MEDS ORDERED: HYDROmorphone INJ 0.5 MG/0.5 ML SYR IV PRN ×2 (11:26→18:38)
[2020-05-09] MEDS ORDERED: NALOXONE HCL 0.4 MG/1 ML VIAL/CARP IV PRN ×2 (11:26→18:38)
[2020-05-09] MEDS ORDERED: ONDANSETRON INJ 2 MG/ML 2 ML VIAL IV PRN ×2 (11:26→18:38)
--- NOTE | 2020-05-09 11:30 | XRay Report ---
SINGLE VIEW PELVIS; SINGLE VIEW RIGHT HIP CLINICAL HISTORY: Postoperative examination. FINDINGS: An AP portable view of the hips and pelvis with a crosstable lateral portable view of the r ight hip are obtained. A bipolar right hip arthroplasty is in near-anatomic alignment. At least 2 co rtical lag screws transfix the acetabular cup. No acute fracture is identified. There are expected po stoperative changes overlying the right hip including skin clips, subcutaneous gas, and soft tissue s welling. A left hip arthroplasty is in place. Sclerotic change is noted in the sacroiliac joints. A s urgical clip projects over the pelvis. IMPRESSION: Expected postoperative findings status post right hip arthroplasty. No acute fracture is seen. ACT 112: Negative or not required by law. Electronically signed by: Juma Arias M.D. 05/09/2020 11:29 AM
[2020-05-09] MEDS: SODIUM CHLORIDE 0.9% 1000ML 1,000 ML IV SCH ×2 (13:31→21:09)
[2020-05-09] MEDS: ACETAMINOPHEN 500 MG TAB PO SCH ×2 (14:25→21:07)
[2020-05-09] MEDS ORDERED: TRANEXAMIC ACID / 0.7% NACL 1,000 MG/100 ML BAG IV SCH (16:30)
[2020-05-09] MEDS: ceFAZolin 1000MG 1,000 MG/7.5 ML SYR IV SCH ×2 (17:26→21:09)
[2020-05-09] MEDS: ASCORBIC ACID 500 MG TAB PO SCH (17:27)
[2020-05-09] MEDS: FERROUS GLUCONATE 324 MG TAB PO SCH (17:27)
[2020-05-09] MEDS ORDERED: NALOXONE HCL 1 MG in SODIUM CHLORIDE 0.9% 1000ML 1,000 ML IV PRN (18:38)
[2020-05-09] MEDS ORDERED: diphenhydrAMINE 50 MG/ML VIAL IV PRN (18:38)
[2020-05-09] MEDS ORDERED: LACTATED RINGER'S 500 ML IV PRN (18:38)
[2020-05-09] MEDS ORDERED: NALOXONE HCL 0.08 MG in SYRINGE 1.8 ML IV PRN (18:38)
[2020-05-09] MEDS ORDERED: NO NARCOTICS OR SEDATIVES SCH (18:45)
[2020-05-09] MEDS ORDERED: MoRPHine SULFATE PF 1 MG/ML 10 ML AMP/VIAL INT SPINAL ONE (18:45)
[2020-05-09] MEDS ORDERED: SODIUM CHLORIDE 0.9% 1000ML 1,000 ML IV SCH (18:45)
[2020-05-09] MEDS ORDERED: NIACINAMIDE 500 MG PO SCH (21:00)
[2020-05-09] MEDS: DOCUSATE SODIUM 100 MG CAP PO SCH (21:08)
[2020-05-09] MEDS: ATORVASTATIN 10 MG TAB PO SCH (21:09)
[2020-05-09] MEDS: SENNA 8.6 MG TAB PO SCH (21:09)
[2020-05-09] MEDS: ATENOLOL 50 MG TABLET PO SCH (21:09)
[2020-05-10] MEDS: ACETAMINOPHEN 500 MG TAB PO SCH ×3 (05:07→21:09)
[2020-05-10 06:43] LABS: Basophils # (auto) 0.01 K/uL (0-0.2); Basophils % (auto) 0.1 %; Hematocrit (blood only) 33.6 % (37-47); Hemoglobin 11.3 g/dL (12.0-16.0); Immature Granulocytes # (auto) 0.02 K/uL (0.00-0.02); Immature Granulocytes % (auto) 0.2 %; Lymphocytes # (auto) 1.28 K/uL (1.2-3.4); Lymphocytes % (auto) 12.2 %; Mean Corpuscular Hemoglobin 34.2 pg (25-34); Mean Corpuscular Hgb Conc 33.6 g/dL (32-36); Mean Corpuscular Volume 101.8 fL (80-100); Mean Platelet Volume 9.3 fL (7.4-10.4); Monocytes # (auto) 1.24 K/uL (0.11-0.59); Monocytes % (auto) 11.8 %; Neutrophils # (auto) 7.96 K/uL (1.4-6.5); Neutrophils % (auto) 75.7 %; Platelet Count 178 K/uL (130-400); RDW Coefficient of Variation 12.4 % (11.5-14.5); RDW Standard Deviation 45.5 fL (36.4-46.3); White Blood Count 10.51 K/uL (4.8-10.8)
[2020-05-10 07:13] LABS: BUN Creatinine Ratio 15.4 (10-20); Calcium 8.8 mg/dl (8.5-10.1); Creatinine Clr Calc Pharmacy 26.2 ml/min; Est GFR (African American) 35.8; Est GFR (Non-African American) 30.9
[2020-05-10] MEDS ORDERED: dexAMETHasone 4 MG TAB PO SCH (08:00)
--- NOTE | 2020-05-10 08:20 | Anesthesiology Progress Note ---
Date of Service May 10, 2020 Anesthesia Post Procedure Vital Signs Vital Signs: Temp Pulse Pulse Pulse Resp BP BP 05/10/20 08:00 18 05/10/20 07:28 36.5 C 85 16 110/65 05/10/20 05:31 18 05/10/20 05:29 05/10/20 04:00 16 05/10/20 03:00 20 05/10/20 02:00 18 05/10/20 01:58 36.7 C 78 16 159/83 H 05/10/20 01:12 14 05/10/20 00:00 16 05/09/20 23:00 16 05/09/20 22:52 36.5 C 81 16 161/81 H 05/09/20 22:05 16 05/09/20 21:00 18 05/09/20 20:00 16 05/09/20 19:35 05/09/20 19:15 36.5 C 82 16 118/72 05/09/20 19:00 18 05/09/20 18:09 16 05/09/20 16:05 16 05/09/20 15:06 16 05/09/20 14:27 36.3 C L 60 16 102/65 05/09/20 13:36 66 12 100/62 05/09/20 12:24 36.5 C 65 16 105/65 05/09/20 11:55 78 14 105/69 05/09/20 11:25 36.5 C 80 12 102/49 L 05/09/20 11:10 77 18 106/48 L 05/09/20 11:00 36.4 C L 80 18 101/52 L 05/09/20 10:50 78 18 113/63 05/09/20 10:42 36.7 C 79 18 115/77 Pulse Ox Pulse Ox 05/10/20 08:00 98 05/10/20 07:28 97 05/10/20 05:31 92 05/10/20 05:29 92 05/10/20 04:00 93 05/10/20 03:00 97 05/10/20 02:00 97 05/10/20 01:58 97 05/10/20 01:12 100 05/10/20 00:00 100 05/09/20 23:00 99 05/09/20 22:52 98 05/09/20 22:05 97 05/09/20 21:00 94 05/09/20 20:00 95 05/09/20 19:35 97 05/09/20 19:15 95 05/09/20 19:00 97 05/09/20 18:09 90 05/09/20 16:05 94 05/09/20 15:06 100 05/09/20 14:27 100 05/09/20 13:36 100 05/09/20 12:24 94 05/09/20 11:55 94 05/09/20 11:25 100 05/09/20 11:10 97 05/09/20 11:00 96 05/09/20 10:50 99 05/09/20 10:42 95 Pain Intensity Right Hip: Pain Intensity: 3 Notes Mental Status: alert / awake / arousable Nausea / Vomiting: adequately controlled Pain: adequately controlled Airway Patency, RR, SpO2: stable & adequate BP & HR: stable & adequate Hydration State: stable & adequate Neuraxial Anesthesia: was administered and sensory block resolved Anesthetic Complications: no major complications apparent and Pt Satisfied with anesthetic care
[2020-05-10] MEDS: CALCIUM 600MG + VIT D 400 IU TAB PO SCH (08:33)
[2020-05-10] MEDS: FERROUS GLUCONATE 324 MG TAB PO SCH ×2 (08:33→17:36)
[2020-05-10] MEDS: MAGNESIUM OXIDE 400 MG TAB PO SCH (08:33)
[2020-05-10] MEDS: DULoxetine HCL 30 MG CAP PO SCH (08:34)
[2020-05-10] MEDS: hydroCHLOROthiazide 25 MG TAB PO SCH (08:34)
[2020-05-10] MEDS: ASCORBIC ACID 500 MG TAB PO SCH ×2 (08:34→17:37)
[2020-05-10] MEDS: LOSARTAN POTASSIUM 50 MG TAB PO SCH (08:34)
[2020-05-10] MEDS: POTASSIUM CHLORIDE 10 MEQ TABCR PO SCH (08:34)
[2020-05-10] MEDS: ATENOLOL 50 MG TABLET PO SCH ×2 (08:34→21:09)
[2020-05-10] MEDS: DOCUSATE SODIUM 100 MG CAP PO SCH ×2 (08:34→21:08)
[2020-05-10] MEDS: MULTIVITAMIN TAB PO SCH (08:34)
--- NOTE | 2020-05-10 08:44 | Progress Notes ---
DATE: 05/10/2020 SUBJECTIVE: An 84-year-old white female postop day 1 from a right hip replacement. She was very nauseated after surgery last night, but doing much better this morning. Denies any chest pain or shortness of breath. Not feeling dizzy or lightheaded. Just kind of tired as she did not sleep well. OBJECTIVE: VITAL SIGNS: Temperature 36.7. Vital signs stable. GENERAL: Shows a pleasant elderly female. She is sitting up in bed this morning and looks pretty comfortable. Had to wake her, but she is awake, alert and appropriate. EXTREMITIES: Examination reveals a pleasant female. Examination of the right hip reveals leg lengths to be equal. Dressing is clean, dry and intact. Her thigh is soft and supple. She is neurologically intact. LABORATORY DATA: Hemoglobin 11.3. Hematocrit 33.6. Electrolytes are stable. Creatinine is slightly elevated, which is at her baseline. ASSESSMENT: An 84-year-old white female postop day 1 from a right hip replacement, doing pretty well. Very nauseated last night, but doing better this morning. PLAN: 1. DVT prophylaxis including thigh-high TEDs, SCDs, and aspirin twice a day. 2. PT/OT. She can weightbear as tolerated in right lower extremity. 3. Pain control, doing okay with current pain regimen. We will need to limit narcotics to avoid side effects. 4. Disposition: She is hoping to be discharged to a [facility] facility or rehab. She was hoping to go to [facility], but I do not think they are taking patients now. business services director will work on that today.
[2020-05-10] MEDS: APIXABAN 2.5 MG TAB PO SCH ×2 (11:13→21:08)
[2020-05-10] MEDS ORDERED: DC INTRASPINAL MORPHINE ONE (12:39)
[2020-05-10] MEDS: ATORVASTATIN 10 MG TAB PO SCH (21:08)
[2020-05-10] MEDS: SENNA 8.6 MG TAB PO SCH (21:08)
[2020-05-11] MEDS: ACETAMINOPHEN 500 MG TAB PO SCH ×2 (05:49→15:48)
[2020-05-11] MEDS: DULoxetine HCL 30 MG CAP PO SCH (07:31)
[2020-05-11] MEDS: APIXABAN 2.5 MG TAB PO SCH (07:32)
[2020-05-11] MEDS: ATENOLOL 50 MG TABLET PO SCH (07:32)
[2020-05-11] MEDS: DOCUSATE SODIUM 100 MG CAP PO SCH (07:32)
[2020-05-11] MEDS: FERROUS GLUCONATE 324 MG TAB PO SCH (07:33)
[2020-05-11] MEDS: ASCORBIC ACID 500 MG TAB PO SCH (07:33)
[2020-05-11] MEDS: MAGNESIUM OXIDE 400 MG TAB PO SCH (07:33)
[2020-05-11] MEDS: hydroCHLOROthiazide 25 MG TAB PO SCH (07:33)
[2020-05-11] MEDS: CALCIUM 600MG + VIT D 400 IU TAB PO SCH (07:33)
[2020-05-11] MEDS: MULTIVITAMIN TAB PO SCH (07:33)
[2020-05-11] MEDS: POTASSIUM CHLORIDE 10 MEQ TABCR PO SCH (07:34)
[2020-05-11] MEDS: LOSARTAN POTASSIUM 50 MG TAB PO SCH (07:34)
[2020-05-11 07:51] LABS: BUN Creatinine Ratio 20.5 (10-20); Calcium 9.7 mg/dl (8.5-10.1); Creatinine Clr Calc Pharmacy 29.2 ml/min; Est GFR (African American) 40.9; Est GFR (Non-African American) 35.3; Potassium 3.6 mmol/L (3.5-5.1)
--- NOTE | 2020-05-11 09:00 | Progress Notes ---
DATE: 05/11/2020 SUBJECTIVE: An 84-year-old female postop day 2 from a right hip replacement. She is doing pretty well. Pain is controlled. No further nausea. No chest pain or shortness of breath. Not feeling dizzy or lightheaded. OBJECTIVE: VITAL SIGNS: Temperature 36.9. Vital signs stable. GENERAL: Shows a pleasant elderly female. She is lying in bed. She is awake, alert and completely appropriate. She looks comfortable. EXTREMITIES: Examination of the right hip reveals the dressing to be clean, dry and intact. Thigh is soft and supple. Hip is located. She is neurologically intact. LABORATORY DATA: Her electrolytes are pending. ASSESSMENT: An 84-year-old female postop day 2 from right hip replacement, doing pretty well. Nausea is resolved. She does live by herself and she is going to need some assistance. PLAN: 1. DVT prophylaxis including thigh-high TEDs, SCDs, and she is back on her Eliquis. She is on a prophylactic dose now and on a therapeutic dose after discharge. 2. PT/OT. Weight bear as tolerated. Right total hip protocol. 3. Pain control, doing well with current pain regimen. 4. Disposition: She is going to need either go to rehab or senior living facility. We will look into that today.
--- NOTE | 2020-05-13 07:16 | Discharge Summary ---
Date of Service May 13, 2020 Discharge Data Consultations 05/10/20 08:00 Consult Case Management - Discharge Planning Routine Procedures Performed Operation Date: 05/09/20 08:50 Actual Procedures p Right Total Hip Arthroplasty--Uncemented(Right) - Star Wolf MD Hospital Course (1) Status post total hip replacement, right: This patient is a 84 year old female admitted on 05/09/20 and underwent total hip arthroplasty. She tolerated the procedure well and there were no complications. Transferred to the PACU post op and later to the orthopedic floor for further care. She was given ancef for antibiotic prophylaxis. She was also given LEONA stockings, SCDs, and eliquis for DVT prophylaxis. Hemoglobin, hematocrit, and vital signs were monitored during her hospital stay and remained stable. Did not require any blood transfusions. There were no complications during her hospital stay. By post op day #2 the patient was tolerating a regular diet, pain was reasonably controlled with oral pain medicine, and she was participating in physical therapy. On post op day #2 the patient was discharged to a senior care facility. She was given printed discharge instructions including prescriptions for extra strength tylenol and tramadol. Continue physical therapy, weight bearing as tolerated. Continue LEONA stockings. Total hip precautions. Follow up approximately 2 weeks post op or sooner if there are problems or concerns. Coding Level of Care Code None Diagnoses Status post total hip replacement, right Z96.641
== END 2020-05-11 16:36 ==
LOC: ASU 06:44 → 3E 06:44

== ENCOUNTER 2020-12-13 15:06 | Inpatient (IN) ==
[2020-12-13] MEDS ORDERED: OPTIRAY 320 125ml IV ONE (15:14)
--- NOTE | 2020-12-13 15:17 | Emergency Department Note ---
Impression & Plan HTN (hypertension), Pulmonary edema, Altered mental status ED Provider Note NAME: LUISITO SHOEMAKER AGE: 85 SEX: F : 1935 ARRIVES VIA: Ambulance INFORMANT: Patient ED PROVIDER(S): Paulo Ogden DO CHIEF COMPLAINT: AMS HPI: Patient is an 85-year-old female who presents the ER for altered mental status from the pain clinic. She has a past medical history of A. fib, CAD, CKD, diabetes, tricuspid valve insufficiency that presents the ER from the pain management clinic for confusion. They note that they have been seeing her for the past 3 days. Today she is slightly confused. She denies any headache, change in vision, chest pain shortness of breath nausea vomiting or diarrhea. No dysuria urgency or frequency. No other exacerbating or remitting factors. She denies any focal weakness. They believe that she stopped her apixaban for the past 5 days for the spinal injections. ROS: See above HPI for pertinent positives & negatives. A total of 10 systems reviewed and were otherwise negative. PAST MEDICAL HISTORY:See Below PAST SURGICAL HISTORY:See Below FAMILY HISTORY:See Below SOCIAL HISTORY:See Below HOME MEDICATIONS:See Below ALLERGIES:See Below VITALS:See Below PHYSICAL EXAMINATION: GENERAL: Sitting up in bed, alert, well appearing, well nourished, no distress, non-toxic EYE EXAM: normal conjunctiva. PERRL and EOM's intact. OROPHARYNX: no exudate, no erythema, lips, buccal mucosa, and tongue normal and mucous membranes are moist NECK: supple, no nuchal rigidity, no adenopathy, non-tender LUNGS: Clear to auscultation. Normal chest wall mechanics HEART: no murmurs, S1 normal and S2 normal ABDOMEN: abdomen soft, non-tender, normo-active bowel sounds, no masses, no rebound or guarding. BACK: Back is symmetrical on inspection and there is no deformity, no midline tenderness, no CVA tenderness. SKIN: no rashes and no bruising UPPER EXTREMITIES: upper extremities are grossly normal. LOWER EXTREMITIES: No pitting edema. NEURO EXAM: Oriented to person but difficulty getting words out intermittently, cranial nerves II-XII intact, no weakness of arms, no weakness of legs. No drift. Finger to nose intact. Gross sensation intact. MEDICAL DECISION MAKING: Patient is an 85-year-old female who presents to the ER brought in by EMS for possible expressive aphasia and a stroke. IV was established blood was obtained. Stroke alert was called prior to arrival as the last known well was initially 11 AM today. We are within the window of just under 4 hours. Labs show no significant leukocytosis or anemia. INR was unremarkable. BMP with a creatinine 1.2. LFTs bilirubin was unremarkable. Per report she had been off her NOAC for 5 days. Troponin was negative. UA was clean. Covid was negative. Patient was typed and crossed. Was able to discuss with the son who notes that he picked her up at 11 and she was not normal been. Last known well would have been the day before/yesterday. This is out of the TPA window. CTs as well as CT angios were negative. Stroke alert was canceled at this point. Her blood pressures were running high but systolic tierney was just around 200-180. Allow permissive hypertension due to the expressive aphasia. Son was updated and patient was admitted for further work-up. Triage Nursing notes reviewed. Limited review of prior medical records performed Vital Signs: reviewed and remarkable for no significant abnormalities Differential diagnosis: Differential Diagnosis includes but is not limited to ischemic Stroke, hemorrhagic stroke, bells palsy, mass, neoplasm, migraine headache, seizure, subarachnoid hemorrhage, TIA, and transient global amnesia. ER treatment provided: See below Diagnostics interpreted by me: ECG: A. fib rate of 91 Normal axis No PVCs QTC 435 Cardiac Monitoring: An order was placed for continuous cardiac monitoring. The monitor shows a rate of 90 with sinus rhythm. Laboratory studies: As stated above and show below. Imaging studies: CT as well as CT angio of the head and neck showed no obvious occlusions Consultation(s): Discussed with the hospitalist for further evaluation Dr. Cristo Arana Procedures: none Critical Care: None Past Med/Surg History Medical History Adjustment disorder with depressed mood Atrial fibrillation Permanent. On eliquis - follows w/ dr. 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 Asymptomatic. Cardio monitoring, will rpt echo ~04/2020 Urinary incontinence Urinary incontinence Surgical History History of cardiac catheterization 2016 [place] - no stents History of cataract surgery History of cholecystectomy History of colonoscopy History of hysterectomy History of left hip replacement 2011 History of Mohs micrographic surgery for skin cancer History of tonsillectomy History of tooth extraction History of total right hip replacement 05/11/20 History of tubal ligation S/P hip replacement Family History Mother Diabetes Cerebral infarction Hypertension Brother Diabetes Hypertension Other No family history of adverse response to anesthesia Social History Smoking Status: Unknown if ever smoked Second Hand Exposure: Yes (MOM SMOKED); Hx Alcohol Use: Yes Alcohol type: wine Hx Substance Use: No Preferred Language: Lithuanian Communication Ability: Effective Visual Impairment: No Limitations Hearing Ability: Hard of Hearing Funnel Setter Required: No Beliefs That Will Affect Care: None marital status: / Current Living Situation: Other Current Living Situation Comment: [place] > [facility] current occupational status: retired Feels Safe at Home: Yes Childhood Exposure to Second-Hand Smoke: Yes Dental Care, Regularly: Yes Physical Activity Frequency: 3-4 Times per Week Seatbelt Use: always Sunscreen Use: No (Pt states she does not go in the sun) Assistive Devices: Walker Allergies Allergies Allergy/AdvReac Type Severity Reaction Status Date / Time Sulfa (Sulfonamide Allergy Intermediate RASH AND Verified 12/13/20 13:44 Antibiotics) NAUSEA amoxicillin AdvReac Intermediate GI SYMPTOMS Verified 12/13/20 13:44 citalopram AdvReac Intermediate severe Verified 12/13/20 13:44 fatigue lisinopril AdvReac Intermediate COUGH Verified 12/13/20 13:44 Home Meds Home Medications Medication Instructions Recorded Confirmed niacinamide 500 mg tablet 500 mg PO BID 01/13/20 12/13/20 calcium carbonate 600 mg calcium 1,200 mg PO DAILY tab 06/12/20 12/13/20 (1,500 mg) tablet magnesium oxide 500 mg PO QAM tab 06/12/20 12/13/20 triamcinolone acetonide 0.1 % 1 applic TOPICAL DAILY PRN 06/12/20 12/13/20 topical cream Previous Rx's Medication Instructions Recorded atenolol 100 mg tablet 100 mg PO BID #180 tab 03/29/20 losartan 100 mg tablet 100 mg PO QAM #90 tab 05/21/20 apixaban 5 mg tablet (Eliquis) 5 mg PO BID #180 tab 07/19/20 potassium chloride 10 mEq 10 meq PO QAM #90 cap 09/27/20 capsule,extended release duloxetine 30 mg capsule,delayed 30 mg PO QAM #90 cap 10/01/20 release atorvastatin 10 mg tablet 10 mg PO HS #90 tab 10/08/20 trospium 20 mg tablet 20 mg PO .QHS #30 tab 11/06/20 benzonatate 100 mg capsule 100 mg PO TID PRN #30 cap 11/20/20 (Gabi Roach) Results & Data (ED) Vital Signs Vital Signs - 24 hr 12/13/20 15:25 12/13/20 15:41 12/13/20 16:01 Temperature 36.4 C L Temperature Source Oral Pulse Rate 86 Pulse Rate [Finger] 74 Respiratory Rate 26 H 24 Blood Pressure 203/127 H Blood Pressure [Left Arm] 185/124 H Blood Pressure Mean 152 Blood Pressure Mean [Left Arm] 144 Pulse Oximetry 89 L 97 94 Oxygen Delivery Method Room Air Nasal Cannula Room Air Oxygen Flow Rate 2 Sepsis Recent Fever Within 48 Hours No Sepsis New/Unexplained Change in Mental Status N/A Sepsis Action Taken by Nursing No Action Required 12/13/20 16:16 12/13/20 16:40 12/13/20 17:05 Temperature Temperature Source Pulse Rate Pulse Rate [Finger] 80 74 86 Respiratory Rate 18 20 20 Blood Pressure Blood Pressure [Left Arm] 200/113 H 214/132 H 213/131 H Blood Pressure Mean Blood Pressure Mean [Left Arm] 142 159 158 Pulse Oximetry 98 95 96 Oxygen Delivery Method Room Air Nasal Cannula Nasal Cannula Oxygen Flow Rate 2 2 Sepsis Recent Fever Within 48 Hours Sepsis New/Unexplained Change in Mental Status Sepsis Action Taken by Nursing 12/13/20 17:31 Temperature Temperature Source Pulse Rate Pulse Rate [Finger] 89 Respiratory Rate 26 H Blood Pressure Blood Pressure [Left Arm] 178/128 H Blood Pressure Mean Blood Pressure Mean [Left Arm] 144 Pulse Oximetry 96 Oxygen Delivery Method Nasal Cannula Oxygen Flow Rate 2 Sepsis Recent Fever Within 48 Hours Sepsis New/Unexplained Change in Mental Status Sepsis Action Taken by Nursing Laboratory Data Result diagrams: 12/13/20 15:30 12/13/20 15:30 Lab Results 12/13/20 12/13/20 12/13/20 Range/Units 15:30 15:30 15:30 WBC 9.68 (4.8-10.8) K/uL RBC 4.40 (4.2-5.4) M/uL Hgb 14.8 (12.0-16.0) g/dL Hct 44.4 (37-47) % MCV 100.9 H (80-100) fL MCH 33.6 (25-34) pg MCHC 33.3 (32-36) g/dL RDW Std Deviation 47.0 H (36.4-46.3) fL RDW Coeff of Sora[place] 12.8 (11.5-14.5) % Plt Count 240 (130-400) K/uL MPV 10.1 (7.4-10.4) fL Immature Gran % (Auto) 0.2 % Neut % (Auto) 52.2 % Lymph % (Auto) 34.4 % [place] % (Auto) 11.6 % Eos % (Auto) 1.2 % Baso % (Auto) 0.4 % Neut # (Auto) 5.05 (1.4-6.5) K/uL Lymph # (Auto) 3.33 (1.2-3.4) K/uL [place] # (Auto) 1.12 H (0.11-0.59) K/uL Eos # (Auto) 0.12 (0-0.5) K/uL Baso # (Auto) 0.04 (0-0.2) K/uL Immature Gran # (Auto) 0.02 (0.00-0.02) K/uL PT 10.9 (9.0-12.0) Seconds INR 1.1 (0.9-1.1) APTT 23.6 (21.0-31.0) Seconds PTT Ratio 0.9 Sodium (136-145) mmol/L Potassium (3.5-5.1) mmol/L Chloride (98-107) mmol/L Carbon Dioxide (21-32) mmol/L Anion Gap (3-11) BUN (7-18) mg/dl Creatinine (0.6-1.2) mg/dl Est Cr Clr Drug Dosing ml/min Est GFR ( Amer) ml/min Est GFR (Non-Af Amer) ml/min BUN/Creatinine Ratio (10-20) Glucose (70-99) mg/dl Calcium (8.5-10.1) mg/dl Magnesium (1.8-2.4) mg/dl Total Bilirubin (0.2-1) mg/dl AST (15-37) U/L ALT (12-78) U/L Alkaline Phosphatase (45-117) U/L Troponin I (0-0.045) ng/ml Total Protein (6.4-8.2) gm/dl Albumin (3.4-5.0) gm/dl Globulin (2.5-4.0) gm/dl Albumin/Globulin Ratio (0.9-2) Urine Color Urine Appearance (Clear) Urine pH (4.5-7.5) Ur Specific [place] (1.000-1.030) Urine Protein (Negative) Urine Glucose (UA) (Negative) Urine Ketones (Negative) Urine Blood (Negative) Urine Nitrite (Negative) Urine Bilirubin (Negative) Urine Urobilinogen (Negative) Ur Leukocyte Esterase (Negative) Urine WBC (Auto) (0-5) /hpf Urine RBC (Auto) (0-4) /hpf U Hyaline Cast (Auto) (0-5) /lpf U Epithel Cells (Auto) (0-5) /lpf Urine Bacteria (Auto) (Negative) COVID-19 Eval Order SARS-CoV-2 (PCR) (Negative) Blood Type A Positive Antibody Screen NEGATIVE 12/13/20 12/13/20 12/13/20 Range/Units 15:30 16:00 16:00 WBC (4.8-10.8) K/uL RBC (4.2-5.4) M/uL Hgb (12.0-16.0) g/dL Hct (37-47) % MCV (80-100) fL MCH (25-34) pg MCHC (32-36) g/dL RDW Std Deviation (36.4-46.3) fL RDW Coeff of Soraida (11.5-14.5) % Plt Count (130-400) K/uL MPV (7.4-10.4) fL Immature Gran % (Auto) % Neut % (Auto) % Lymph % (Auto) % [place] % (Auto) % Eos % (Auto) % Baso % (Auto) % Neut # (Auto) (1.4-6.5) K/uL Lymph # (Auto) (1.2-3.4) K/uL [place] # (Auto) (0.11-0.59) K/uL Eos # (Auto) (0-0.5) K/uL Baso # (Auto) (0-0.2) K/uL Immature Gran # (Auto) (0.00-0.02) K/uL PT (9.0-12.0) Seconds INR (0.9-1.1) APTT (21.0-31.0) Seconds PTT Ratio Sodium 136 (136-145) mmol/L Potassium 3.9 (3.5-5.1) mmol/L Chloride 104 (98-107) mmol/L Carbon Dioxide 28 (21-32) mmol/L Anion Gap 4.0 (3-11) BUN 17 (7-18) mg/dl Creatinine 1.28 H (0.6-1.2) mg/dl Est Cr Clr Drug Dosing 32.6 ml/min Est GFR ( Amer) 44.1 ml/min Est GFR (Non-Af Amer) 38.1 ml/min BUN/Creatinine Ratio 13.0 (10-20) Glucose 135 H (70-99) mg/dl Calcium 9.4 (8.5-10.1) mg/dl Magnesium 2.1 (1.8-2.4) mg/dl Total Bilirubin 0.8 (0.2-1) mg/dl AST 24 (15-37) U/L ALT 24 (12-78) U/L Alkaline Phosphatase 60 (45-117) U/L Troponin I < 0.015 (0-0.045) ng/ml Total Protein 6.6 (6.4-8.2) gm/dl Albumin 3.4 (3.4-5.0) gm/dl Globulin 3.2 (2.5-4.0) gm/dl Albumin/Globulin Ratio 1.1 (0.9-2) Urine Color Yellow Urine Appearance Clear (Clear) Urine pH 6.5 (4.5-7.5) Ur Specific [place] 1.042 H (1.000-1.030) Urine Protein 1+ H (Negative) Urine Glucose (UA) Negative (Negative) Urine Ketones Negative (Negative) Urine Blood Negative (Negative) Urine Nitrite Negative (Negative) Urine Bilirubin Negative (Negative) Urine Urobilinogen Negative (Negative) Ur Leukocyte Esterase Negative (Negative) Urine WBC (Auto) 1-5 (0-5) /hpf Urine RBC (Auto) 0-4 (0-4) /hpf U Hyaline Cast (Auto) 0 (0-5) /lpf U Epithel Cells (Auto) 5-10 H (0-5) /lpf Urine Bacteria (Auto) Negative (Negative) COVID-19 Eval Order Covid19 at [facility] SARS-CoV-2 (PCR) (Negative) Blood Type Antibody Screen 12/13/20 Range/Units 16:00 WBC (4.8-10.8) K/uL RBC (4.2-5.4) M/uL Hgb (12.0-16.0) g/dL Hct (37-47) % MCV (80-100) fL MCH (25-34) pg MCHC (32-36) g/dL RDW Std Deviation (36.4-46.3) fL RDW Coeff of Soraida (11.5-14.5) % Plt Count (130-400) K/uL MPV (7.4-10.4) fL Immature Gran % (Auto) % Neut % (Auto) % Lymph % (Auto) % [place] % (Auto) % Eos % (Auto) % Baso % (Auto) % Neut # (Auto) (1.4-6.5) K/uL Lymph # (Auto) (1.2-3.4) K/uL [place] # (Auto) (0.11-0.59) K/uL Eos # (Auto) (0-0.5) K/uL Baso # (Auto) (0-0.2) K/uL Immature Gran # (Auto) (0.00-0.02) K/uL PT (9.0-12.0) Seconds INR (0.9-1.1) APTT (21.0-31.0) Seconds PTT Ratio Sodium (136-145) mmol/L Potassium (3.5-5.1) mmol/L Chloride (98-107) mmol/L Carbon Dioxide (21-32) mmol/L Anion Gap (3-11) BUN (7-18) mg/dl Creatinine (0.6-1.2) mg/dl Est Cr Clr Drug Dosing ml/min Est GFR ( Amer) ml/min Est GFR (Non-Af Amer) ml/min BUN/Creatinine Ratio (10-20) Glucose (70-99) mg/dl Calcium (8.5-10.1) mg/dl Magnesium (1.8-2.4) mg/dl Total Bilirubin (0.2-1) mg/dl AST (15-37) U/L ALT (12-78) U/L Alkaline Phosphatase (45-117) U/L Troponin I (0-0.045) ng/ml Total Protein (6.4-8.2) gm/dl Albumin (3.4-5.0) gm/dl Globulin (2.5-4.0) gm/dl Albumin/Globulin Ratio (0.9-2) Urine Color Urine Appearance (Clear) Urine pH (4.5-7.5) Ur Specific [place] (1.000-1.030) Urine Protein (Negative) Urine Glucose (UA) (Negative) Urine Ketones (Negative) Urine Blood (Negative) Urine Nitrite (Negative) Urine Bilirubin (Negative) Urine Urobilinogen (Negative) Ur Leukocyte Esterase (Negative) Urine WBC (Auto) (0-5) /hpf Urine RBC (Auto) (0-4) /hpf U Hyaline Cast (Auto) (0-5) /lpf U Epithel Cells (Auto) (0-5) /lpf Urine Bacteria (Auto) (Negative) COVID-19 Eval Order SARS-CoV-2 (PCR) NEGATIVE (Negative) Blood Type Antibody Screen Administered Medications Enoxaparin Sodium (Enoxaparin 80 Mg/0.8 Ml Syr) 80 mg SQ Q12H BUBBA Stop: 01/12/21 19:59 Last Admin: 12/13/20 20:56 Dose: 80 mg Documented by: [id number] Metoprolol Tartrate (Metoprolol Tartrate 1 Mg/Ml Vial) 5 mg IV Q6 BUBBA Stop: 01/12/21 19:59 Last Admin: 12/13/20 20:46 Dose: 5 mg Documented by: [id number] Discontinued Medications Sodium Chloride (Nss 1000ml) 1,000 mls @ 999 mls/hr IV .Q1H1M ONE Stop: 12/13/20 16:18 Last Infusion: 12/13/20 20:28 Dose: 0 mls/hr Documented by: [id number] Infusion: 12/13/20 16:20 Dose: 999 mls/hr Documented by: [id number] Admin: 12/13/20 16:04 Dose: 999 mls/hr Documented by: [id number] Promethazine HCl (Phenergan) 12.5 mg in 50.5 mls @ 202 mls/hr IV NOW STA Stop: 12/13/20 18:36 Last Infusion: 12/13/20 20:28 Dose: 0 mls/hr Documented by: [id number] Admin: 12/13/20 18:28 Dose: 202 mls/hr Documented by: [id number] Ioversol (Optiray 320 125ml) 119 ml IV ONCE ONE Stop: 12/13/20 15:15 Last Admin: 12/13/20 15:16 Dose: 119 ml Documented by: [id number] Ondansetron HCl (Ondansetron Inj 2 Mg/Ml 2 Ml Vial) Confirm Administered Dose 4 mg .ROUTE .STK-MED ONE Stop: 12/13/20 15:23 Last Admin: 12/13/20 15:24 Dose: 4 mg Documented by: [id number] Ondansetron HCl (Ondansetron Inj 2 Mg/Ml 2 Ml Vial) Confirm Administered Dose 4 mg .ROUTE .STK-MED ONE Stop: 12/13/20 17:28 Last Admin: 12/13/20 17:29 Dose: 4 mg Documented by: [id number] Imaging Data Radiologist's Impression: Head CT 12/13/20 14:58 CT SCAN OF THE BRAIN WITHOUT IV CONTRAST CLINICAL HISTORY: Strokelike symptoms. COMPARISON STUDY: No priors. TECHNIQUE: Unenhanced axial CT scan of the brain is performed from the vertex to the skull base. A dose lowering technique was utilized adhering to the principles of ALARA. FINDINGS: Brain parenchyma: There are age-related involutional changes noting moderate subcortical and periventricular microangiopathic change. There is no hemorrhage, mass effect, or evidence of acute territorial ischemia by CT criteria. Meier- white matter differentiation is preserved. No extra-axial fluid collection is seen. Ventricles, sulci, cisterns: Prominent secondary to involutional change. Intracranial vasculature: There is atherosclerotic calcification of the cavernous carotid and vertebral arteries. Calvarium: Unremarkable. Sinuses and mastoids: The visualized paranasal sinuses are clear. There is a right mastoid effusion. The left mastoid air cells are well pneumatized. Orbits: The bony orbits are grossly intact. There are bilateral ocular lens implants. IMPRESSION: There is no hemorrhage, mass effect, or evidence of acute territorial ischemia by CT criteria. ACT 112: Negative or not required by law. Electronically signed by: Juma Arias M.D. 12/13/2020 3:20 PM Head CTA 12/13/20 14:58 CT ANGIOGRAM OF THE BRAIN; CT ANGIOGRAM OF THE NECK CLINICAL HISTORY: Strokelike symptoms. COMPARISON STUDY: Unenhanced CT of the brain performed concurrently on 12/13/2020. TECHNIQUE: Following the IV administration of 119 of Optiray 320, CT angiogram of the head and neck was performed from the aortic arch to the vertex. Images are reviewed in the axial, sagittal, and coronal planes. 3-D MIPS images are created and assessed. IV contrast was administered without complication. All measurements were calculated based on NASCET criteria. A dose lowering technique was utilized adhering to the principles of ALARA. CT DOSE: 1020.28 mGy.cm FINDINGS: Brain parenchyma: There is age-related involutional change noting moderate subcortical and periventricular microangiopathic disease. There is no evidence of hemorrhage, mass effect, or acute territorial ischemia noting angiographic phase technique. There is no evidence of enhancing mass lesion on the angiogram phase images. The ventricles, sulci, and cisterns are prominent secondary to involutional change. Meier-white matter differentiation is preserved. No extra- axial fluid collection is seen. Thoracic aorta: Visualized portions of the thoracic aorta are normal in caliber. The aortic arch demonstrates bovine variant anatomy. Right carotid arterial system: The right common carotid artery is widely patent, as are the right internal and external carotid arteries. Calcified plaque is noted in the carotid bulb. Left carotid arterial system: The left common carotid artery is widely patent, as are the left internal and external carotid arteries. Calcified plaque is noted in the carotid bulb. Vertebral arteries: The left vertebral artery is dominant and widely patent. The right vertebral artery is diminutive and likely terminates at the skull base. Subclavian arteries: Widely patent bilaterally. Intracranial vasculature: There is atherosclerotic calcification of the cavernous carotid and vertebral arteries. There is origin of the right posterior cerebral artery. The internal carotid arteries are patent at the skull base, as are the anterior and middle cerebral arteries bilaterally. The basilar artery and the left vertebral artery are patent. The left vertebral artery is dominant and widely patent. The right vertebral artery is diminutive and term inates at the skull base. There is no aneurysm, high-grade stenosis, or focal vessel cut off seen throughout the intracranial circulation. Jugular veins: Patent bilaterally. Dural sinuses: Patent. Lung apices: Intralobular septal thickening is seen throughout the upper lobes. Soft tissues: The visualized pharyngeal soft tissues are normal in appearance noting angiographic phase technique. The oropharyngeal airway appears widely patent. The thyroid gland is markedly heterogeneous. The salivary glands are normal in appearance. No cervical lymphadenopathy is seen. Skeletal structures: The skeletal structures are osteopenic. The calvarium appears intact. The cervical spine is noting multilevel spondylosis. No lytic or blastic lesion is seen. Orbits: The bony orbits are intact. Orbital contents are normal as visualized noting bilateral ocular lens implants. Sinuses and mastoids: The paranasal sinuses are clear. There is a right mastoid effusion. The left mastoid air cells are well pneumatized. IMPRESSION: 1. There is no evidence of hemorrhage, mass effect, or acute territorial noting angiographic phase technique. 2. The left vertebral artery is dominant and widely patent. The right vertebral artery is diminutive and terminates at the skull base. This is likely chronic. 3. Otherwise unremarkable CT angiograms of the head and neck. ACT 112: Negative or not required by law. Electronically signed by: Juma Arias M.D. 12/13/2020 3:27 PM Neck CTA 12/13/20 14:58 CT ANGIOGRAM OF THE BRAIN; CT ANGIOGRAM OF THE NECK CLINICAL HISTORY: Strokelike symptoms. COMPARISON STUDY: Unenhanced CT of the brain performed concurrently on 12/13/2020. TECHNIQUE: Following the IV administration of 119 of Optiray 320, CT angiogram of the head and neck was performed from the aortic arch to the vertex. Images are reviewed in the axial, sagittal, and coronal planes. 3-D MIPS images are created and assessed. IV contrast was administered without complication. All measurements were calculated based on NASCET criteria. A dose lowering technique was utilized adhering to the principles of ALARA. CT DOSE: 1020.28 mGy.cm FINDINGS: Brain parenchyma: There is age-related involutional change noting moderate subcortical and periventricular microangiopathic disease. There is no evidence of hemorrhage, mass effect, or acute territorial ischemia noting angiographic phase technique. There is no evidence of enhancing mass lesion on the angiogram phase images. The ventricles, sulci, and cisterns are prominent secondary to involutional change. Meier-white matter differentiation is preserved. No extra- axial fluid collection is seen. Thoracic aorta: Visualized portions of the thoracic aorta are normal in caliber. The aortic arch demonstrates bovine variant anatomy. Right carotid arterial system: The right common carotid artery is widely patent, as are the right internal and external carotid arteries. Calcified plaque is noted in the carotid bulb. Left carotid arterial system: The left common carotid artery is widely patent, as are the left internal and external carotid arteries. Calcified plaque is noted in the carotid bulb. Vertebral arteries: The left vertebral artery is dominant and widely patent. The right vertebral artery is diminutive and likely terminates at the skull base. Subclavian arteries: Widely patent bilaterally. Intracranial vasculature: There is atherosclerotic calcification of the cavern ous carotid and vertebral arteries. There is origin of the right posterior cerebral artery. The internal carotid arteries are patent at the skull base, as are the anterior and middle cerebral arteries bilaterally. The basilar artery and the left vertebral artery are patent. The left vertebral artery is dominant and widely patent. The right vertebral artery is diminutive and terminates at the skull base. There is no aneurysm, high-grade stenosis, or focal vessel cut off seen throughout the intracranial circulation. Jugular veins: Patent bilaterally. Dural sinuses: Patent. Lung apices: Intralobular septal thickening is seen throughout the upper lobes. Soft tissues: The visualized pharyngeal soft tissues are normal in appearance noting angiographic phase technique. The oropharyngeal airway appears widely patent. The thyroid gland is markedly heterogeneous. The salivary glands are normal in appearance. No cervical lymphadenopathy is seen. Skeletal structures: The skeletal structures are osteopenic. The calvarium appears intact. The cervical spine is noting multilevel spondylosis. No lytic or blastic lesion is seen. Orbits: The bony orbits are intact. Orbital contents are normal as visualized noting bilateral ocular lens implants. Sinuses and mastoids: The paranasal sinuses are clear. There is a right mastoid effusion. The left mastoid air cells are well pneumatized. IMPRESSION: 1. There is no evidence of hemorrhage, mass effect, or acute territorial noting angiographic phase technique. 2. The left vertebral artery is dominant and widely patent. The right vertebral artery is diminutive and terminates at the skull base. This is likely chronic. 3. Otherwise unremarkable CT angiograms of the head and neck. ACT 112: Negative or not required by law. Electronically signed by: Juma Arias M.D. 12/13/2020 3:27 PM Chest X-Ray 12/13/20 15:33 XR chest 1V portable HISTORY: 85 years-old Female ams . Acutely altered mental status COMPARISON: Chest radiograph 01/13/2020, CTA neck of same day. TECHNIQUE: Portable AP view of the chest FINDINGS: Cardiac silhouette is enlarged. Mild coarsening of the interstitium has progressed from comparison. Pulmonary vascular congestion. No pneumothorax, pleural effusion or lobar airspace consolidation. Degenerative changes of the shoulders and spine. IMPRESSION: Cardiomegaly with suggestion of mild pulmonary edema. ACT 112: Negative or not required by law. The above report was generated using voice recognition software. It may contain grammatical, syntax or spelling errors. Electronically signed by: Neville Watson M.D. 12/13/2020 3:56 PM Brain MRI 12/13/20 16:18 Brain MRI WITHOUT CONTRAST HISTORY: expressive dysphasia TECHNIQUE: Multiplanar multisequence MRI of the brain was performed without the use of contrast. COMPARISON STUDY: Head CT 12/13/2020. FINDINGS: Questionable focus of restricted diffusion within the left temporal lobe on image 10 appears to represent artifact. Otherwise, no areas restricted diffusion to suggest acute infarction. The midline structures are intact. The paranasal sinuses and left mastoid air cells are clear. There is a trace right mastoid effusion. The major vascular flow-voids at the skull base are well- maintained. The ventricles and sulci demonstrate mild age-related involutional changes. There is no mass, hematoma, midline shift. Evidence for prior bilateral lens replacement. Patchy periventricular white matter T2 hyperintensity is nonspecific but favors mild microvascular ischemic change. IMPRESSION: No acute intracranial abnormality. Scattered foci of T2 hyperintensity seen within the periventricular and subcortical white matter are nonspecific but favor microvascular ischemic change. ACT 112: Negative or not required by law. Electronically signed by: Amandeep Diego M.D. 12/13/2020 6:41 PM Discharge Plan Visit Data Chief Complaint: Stroke Alert Stated Complaint: STROKE ALERT ED Provider: Paulo Ogden Discharge Problem: HTN (hypertension), Pulmonary edema, Altered mental status Patient Disposition: Admitted As Inpatient Discharge Instructions Interventions: ED Discharge Assessment Last Done: 12/13/20 19:07 Discharge Problem: HTN (hypertension) Qualifiers: Hypertension type: unspecified Qualified Code(s): I10 - Essential (primary) hypertension Pulmonary edema Qualifiers: Chronicity: acute Qualified Code(s): J81.0 - Acute pulmonary edema Altered mental status Qualifiers: Altered mental status type: unspecified Qualified Code(s): R41.82 - Altered mental status, unspecified
[2020-12-13] MEDS ORDERED: SODIUM CHLORIDE 0.9% 1000ML 1,000 ML IV ONE (15:18)
--- NOTE | 2020-12-13 15:21 | CT Scan Report ---
CT SCAN OF THE BRAIN WITHOUT IV CONTRAST CLINICAL HISTORY: Strokelike symptoms. COMPARISON STUDY: No priors. TECHNIQUE: Unenhanced axial CT scan of the brain is performed from the vertex to the skull base. A do se lowering technique was utilized adhering to the principles of ALARA. FINDINGS: Brain parenchyma: There are age-related involutional changes noting moderate subcortical and periven tricular microangiopathic change. There is no hemorrhage, mass effect, or evidence of acute territori al ischemia by CT criteria. Meier-white matter differentiation is preserved. No extra-axial fluid meredith ection is seen. Ventricles, sulci, cisterns: Prominent secondary to involutional change. Intracranial vasculature: There is atherosclerotic calcification of the cavernous carotid and vertebr al arteries. Calvarium: Unremarkable. Sinuses and mastoids: The visualized paranasal sinuses are clear. There is a right mastoid effusion. The left mastoid air cells are well pneumatized. Orbits: The bony orbits are grossly intact. There are bilateral ocular lens implants. IMPRESSION: There is no hemorrhage, mass effect, or evidence of acute territorial ischemia by CT rhonda faust. ACT 112: Negative or not required by law. Electronically signed by: Juma Arias M.D. 12/13/2020 3:20 PM
[2020-12-13] MEDS ORDERED: ONDANSETRON INJ 2 MG/ML 2 ML VIAL ONE ×2 (15:22→17:27)
--- NOTE | 2020-12-13 15:28 | CT Scan Report ---
CT ANGIOGRAM OF THE BRAIN; CT ANGIOGRAM OF THE NECK CLINICAL HISTORY: Strokelike symptoms. COMPARISON STUDY: Unenhanced CT of the brain performed concurrently on 12/13/2020. TECHNIQUE: Following the IV administration of 119 of Optiray 320, CT angiogram of the head and neck w as performed from the aortic arch to the vertex. Images are reviewed in the axial, sagittal, and ying nal planes. 3-D MIPS images are created and assessed. IV contrast was administered without complicati on. All measurements were calculated based on NASCET criteria. A dose lowering technique was utilize d adhering to the principles of ALARA. CT DOSE: 1020.28 mGy.cm FINDINGS: Brain parenchyma: There is age-related involutional change noting moderate subcortical and periventri cular microangiopathic disease. There is no evidence of hemorrhage, mass effect, or acute territorial ischemia noting angiographic phase technique. There is no evidence of enhancing mass lesion on the a ngiogram phase images. The ventricles, sulci, and cisterns are prominent secondary to involutional ch armando. Meier-white matter differentiation is preserved. No extra-axial fluid collection is seen. Thoracic aorta: Visualized portions of the thoracic aorta are normal in caliber. The aortic arch demo nstrates bovine variant anatomy. Right carotid arterial system: The right common carotid artery is widely patent, as are the right int ernal and external carotid arteries. Calcified plaque is noted in the carotid bulb. Left carotid arterial system: The left common carotid artery is widely patent, as are the left investigator internal affairs al and external carotid arteries. Calcified plaque is noted in the carotid bulb. Vertebral arteries: The left vertebral artery is dominant and widely patent. The right vertebral kaylan ry is diminutive and likely terminates at the skull base. Subclavian arteries: Widely patent bilaterally. Intracranial vasculature: There is atherosclerotic calcification of the cavernous carotid and vertebr al arteries. There is origin of the right posterior cerebral artery. The internal carotid arter ies are patent at the skull base, as are the anterior and middle cerebral arteries bilaterally. The b asilar artery and the left vertebral artery are patent. The left vertebral artery is dominant and wid michael patent. The right vertebral artery is diminutive and terminates at the skull base. There is no an eurysm, high-grade stenosis, or focal vessel cut off seen throughout the intracranial circulation. Jugular veins: Patent bilaterally. Dural sinuses: Patent. Lung apices: Intralobular septal thickening is seen throughout the upper lobes. Soft tissues: The visualized pharyngeal soft tissues are normal in appearance noting angiographic pha se technique. The oropharyngeal airway appears widely patent. The thyroid gland is markedly heterogen eous. The salivary glands are normal in appearance. No cervical lymphadenopathy is seen. Skeletal structures: The skeletal structures are osteopenic. The calvarium appears intact. The cervic al spine is noting multilevel spondylosis. No lytic or blastic lesion is seen. Orbits: The bony orbits are intact. Orbital contents are normal as visualized noting bilateral ocular lens implants. Sinuses and mastoids: The paranasal sinuses are clear. There is a right mastoid effusion. The left ma stoid air cells are well pneumatized. IMPRESSION: 1. There is no evidence of hemorrhage, mass effect, or acute territorial noting angiographic phase te chnique. 2. The left vertebral artery is dominant and widely patent. The right vertebral artery is diminutive and terminates at the skull base. This is likely chronic. 3. Otherwise unremarkable CT angiograms of the head and neck. ACT 112: Negative or not required by law. Electronically signed by: Juma Arias M.D. 12/13/2020 3:27 PM
[2020-12-13 15:41] LABS: Basophils # (auto) 0.04 K/uL (0-0.2); Basophils % (auto) 0.4 %; Eosinophils # (auto) 0.12 K/uL (0-0.5); Eosinophils % (auto) 1.2 %; Hematocrit (blood only) 44.4 % (37-47); Hemoglobin 14.8 g/dL (12.0-16.0); Immature Granulocytes # (auto) 0.02 K/uL (0.00-0.02); Immature Granulocytes % (auto) 0.2 %; Lymphocytes # (auto) 3.33 K/uL (1.2-3.4); Lymphocytes % (auto) 34.4 %; Mean Corpuscular Hemoglobin 33.6 pg (25-34); Mean Corpuscular Hgb Conc 33.3 g/dL (32-36); Mean Corpuscular Volume 100.9 fL (80-100); Mean Platelet Volume 10.1 fL (7.4-10.4); Monocytes # (auto) 1.12 K/uL (0.11-0.59); Monocytes % (auto) 11.6 %; Neutrophils # (auto) 5.05 K/uL (1.4-6.5); Neutrophils % (auto) 52.2 %; Platelet Count 240 K/uL (130-400); RDW Coefficient of Variation 12.8 % (11.5-14.5); White Blood Count 9.68 K/uL (4.8-10.8)
[2020-12-13 15:52] LABS: INR 1.1 (0.9-1.1); Partial Thromboplastin Ratio 0.9; Partial Thromboplastin Time 23.6 Seconds (21.0-31.0); Prothrombin Time 10.9 Seconds (9.0-12.0)
--- NOTE | 2020-12-13 15:57 | XRay Report ---
XR chest 1V portable HISTORY: 85 years-old Female ams . Acutely altered mental status COMPARISON: Chest radiograph 01/13/2020, CTA neck of same day. TECHNIQUE: Portable AP view of the chest FINDINGS: Cardiac silhouette is enlarged. Mild coarsening of the interstitium has progressed from comparison. P ulmonary vascular congestion. No pneumothorax, pleural effusion or lobar airspace consolidation. Dege nerative changes of the shoulders and spine. IMPRESSION: Cardiomegaly with suggestion of mild pulmonary edema. ACT 112: Negative or not required by law. The above report was generated using voice recognition software. It may contain grammatical, syntax o r spelling errors. Electronically signed by: Neville Watson M.D. 12/13/2020 3:56 PM
[2020-12-13 16:02] LABS: Alanine Aminotransferase 24 U/L (12-78); Albumin Level 3.4 gm/dl (3.4-5.0); Aspartate Aminotransferase 24 U/L (15-37); Blood Urea Nitrogen 17 mg/dl (7-18); Calcium 9.4 mg/dl (8.5-10.1); Carbon Dioxide 28 mmol/L (21-32); Chloride 104 mmol/L (98-107); Creatinine Clr Calc Pharmacy 32.6 ml/min; Est GFR (African American) 44.1 ml/min; Est GFR (Non-African American) 38.1 ml/min; Glucose 135 mg/dl (70-99); Magnesium 2.1 mg/dl (1.8-2.4); Potassium 3.9 mmol/L (3.5-5.1); Sodium 136 mmol/L (136-145)
[2020-12-13 16:07] LABS: Appearance Urine Clear (Clear); Bacteria Urine Automated Negative (Negative); Bilirubin Urine Negative (Negative); Blood Urine Negative (Negative); Cast Urine Automated 0 /lpf (0-5); Color Urine Yellow; Glucose Urine UA Negative (Negative); Ketones Urine Negative (Negative); Leukocyte Esterase Urine Negative (Negative); Nitrite Urine Negative (Negative); Protein Urine 1+ (Negative); RBC Urine Automated 0-4 /hpf (0-4); Specific Gravity Urine 1.042 (1.000-1.030); Urobilinogen Urine Negative (Negative); pH Urine 6.5 (4.5-7.5)
[2020-12-13 16:07] LABS: Albumin Globulin Ratio 1.1 (0.9-2); Alkaline Phosphatase 60 U/L (45-117); Bilirubin,Total 0.8 mg/dl (0.2-1); Globulin 3.2 gm/dl (2.5-4.0); Total Protein 6.6 gm/dl (6.4-8.2); Troponin I < 0.015 ng/ml (0-0.045)
[2020-12-13] MEDS ORDERED: FUROSEMIDE 40 MG/4 ML VIAL IV STA (16:11)
--- NOTE | 2020-12-13 16:36 | History & Physical Report ---
Date of Service December 13, 2020 History of Present Illness Primary Care Provider: Juma Shah MD 250ml of fluids Allergies Allergy/AdvReac Type Severity Reaction Status Date / Time Sulfa (Sulfonamide Allergy Intermediate RASH AND Verified 12/13/20 13:44 Antibiotics) NAUSEA amoxicillin AdvReac Intermediate GI SYMPTOMS Verified 12/13/20 13:44 citalopram AdvReac Intermediate severe Verified 12/13/20 13:44 fatigue lisinopril AdvReac Intermediate COUGH Verified 12/13/20 13:44 Home Medications Medication Instructions Recorded Confirmed Type niacinamide 500 mg tablet 500 mg PO BID 01/13/20 12/13/20 History atenolol 100 mg tablet 100 mg PO BID #180 tab 03/29/20 12/13/20 Rx losartan 100 mg tablet 100 mg PO QAM #90 tab 05/21/20 12/13/20 Rx calcium carbonate 600 mg calcium 1,200 mg PO DAILY tab 06/12/20 12/13/20 History (1,500 mg) tablet magnesium oxide 500 mg PO QAM tab 06/12/20 12/13/20 History triamcinolone acetonide 0.1 % 1 applic TOPICAL DAILY PRN 06/12/20 12/13/20 History topical cream apixaban 5 mg tablet (Eliquis) 5 mg PO BID #180 tab 07/19/20 12/13/20 Rx potassium chloride 10 mEq 10 meq PO QAM #90 cap 09/27/20 12/13/20 Rx capsule,extended release duloxetine 30 mg capsule,delayed 30 mg PO QAM #90 cap 10/01/20 12/13/20 Rx release atorvastatin 10 mg tablet 10 mg PO HS #90 tab 10/08/20 12/13/20 Rx trospium 20 mg tablet 20 mg PO .QHS #30 tab 11/06/20 12/13/20 Rx benzonatate 100 mg capsule 100 mg PO TID PRN #30 cap 11/20/20 12/13/20 Rx (Tessalpuja Roach) Past Med/Surg History Medical History (Updated 12/04/20 @ 13:58 by Juma Shah MD) Adjustment disorder with depressed mood Atrial fibrillation Permanent. On eliquis - follows w/ dr. eddy Benign essential hypertension CAD (coronary artery disease) s/p cardiac cath 2016 @ [facility], "Mild non-obstructive coronary artery disease" Chest heaviness Chronic back pain Chronic hip pain after total replacement of left hip joint Controlled diabetes mellitus PCP monitoring, "diet controlled." Degenerative joint disease of right hip Herniated intervertebral disc History of basal cell carcinoma History of SCC (squamous cell carcinoma) of skin Hyperlipidemia Osteoarthritis of right hip Osteoporosis Right shoulder pain Tricuspid valve insufficiency MODERATE-SEVERE ON 01/2019 ECHO. Asymptomatic. Cardio monitoring, will rpt echo ~04/2020 Urinary incontinence Urinary incontinence Surgical History History of cardiac catheterization 2016 [facility] - no stents History of cataract surgery History of cholecystectomy History of colonoscopy History of hysterectomy History of left hip replacement 2011 History of Mohs micrographic surgery for skin cancer History of tonsillectomy History of tooth extraction History of total right hip replacement 05/11/20 History of tubal ligation S/P hip replacement Family History Mother Diabetes Cerebral infarction Hypertension Brother Diabetes Hypertension Other No family history of adverse response to anesthesia Social History Smoking Status: Unknown if ever smoked Second Hand Exposure: Yes (MOM SMOKED); Hx Alcohol Use: Yes Alcohol type: wine Hx Substance Use: No Preferred Language: Bangladeshi Communication Ability: Effective Visual Impairment: No Limitations Hearing Ability: Hard of Hearing Handbag Finisher Required: No Beliefs That Will Affect Care: None marital status: / Current Living Situation: Other [place] [facility] [place] status[place] retired Feels Safe at Home: Yes Childhood Exposure to Second-Hand Smoke: Yes Dental Care, Regularly: Yes Physical Activity Frequency: 3-4 Times per Week Seatbelt Use: always Sunscreen Use: No (Pt states she does not go in the sun) Assistive Devices: Walker Results & Data Results & Data ([facility]) Vital Signs (Past 12 Hours) Vital Signs Temp Pulse Pulse Resp BP BP Pulse Ox 12/13/20 16:16 80 18 200/113 H 98 12/13/20 16:01 74 24 185/124 H 94 12/13/20 15:41 97 12/13/20 15:25 36.4 C L 86 26 H 203/127 H 89 L PG Care Time/CCT Total # of Minutes Spent Total Time Spent with Patient: Total time spent is greater than 50% in coordination of care (as documented) at patient's floor/unit and/or counseling patient: Coding
--- NOTE | 2020-12-13 17:54 | History & Physical Report ---
Date of Service December 13, 2020 Assessment & Plan (1) Expressive aphasia: Plan: Mrs. Servin is an 85-year-old white female who was very independent. She still drives and lives alone she has been off of her Eliquis X 5 days as she has been getting epidural lumbar spinal injections. Last known well last night. Found to have expressive aphasia by the son today -BP significantly elevated at 214/132. Patient is able to tell me that she did not take any of her antihypertensive agents on account of planning on getting the lumbar injection today (which did not take place) -CT of the head unremarkable -CTA of the head and neck unremarkable -Patient does have underlying atrial fibrillation. Her EKG and hall monitor confirmed this -Clinically, it appears as if she likely had an acute neurological event-time of onset unknown but last known well at 5:30 PM last night -Will obtain an MRI -Will consult neurologyappreciate recommendations. I do have a call out to Dr. Zepeda to discuss this case -Will obtain an echocardiogram to assess for LV function and intracardiac thrombus -Ideally, patient will be placed back on her anticoagulation therapy with consideration of addition of antiplatelet agents (sedrick with h/o CAD) and high intensity statin therapy but for now she will be made n.p.o. until speech therapy can do an evaluation -Aspiration precautions will be initiated -We will consider treatment dose Lovenox but hold off until MRI done (if patient had a large stroke, this potentially can turn hemorrhagic) -Lipid panel will be obtained in the a.m. for risk stratification -It is possible that patient is having acute encephalopathy on account of her e levated BP but her symptoms seem more consistent with CVA/TIA and that she has expressive aphasia rather than confusion. She clearly seems to know what she wants to say but cannot get the words out -Consult PT/OT (2) Hypertensive urgency: Plan: -Patient's BP upon presentation was 214/132 -Typically takes metoprolol and losartanneither which were given on account of plan for spinal injection today -Would prefer BP remain above 160 systolic/100 diastolic given likelihood that she is/had an acute neurological event -She is n.p.o. until speech can do an assessment. -We will start routine Lopressor IV (to help keep heart rate controlled and BP) but hold for SBP<160/DBP< 100 -It is possible that this may be contributing to the speech alteration but again, as outlined above this seems more consistent with expressive aphasia than it does altered mental status (3) Atrial fibrillation, permanent: Plan: -Patient takes metoprolol and Eliquis -Given her n.p.o. status, she will be on routine Lopressor IV as outlined above -Pending she does not have a very large stroke on MRI, will start Lovenox (4) CAD (coronary artery disease): Plan: -Patient takes beta-blockade, and statin therapy -Again, is n.p.o. so oral meds will be held -She is not on antiplatelet agents. Would appreciate recommendations from neurology but underlying CAD would be another reason to add antiplatelet therapy. We will try to decipher if patient has had ill effects to this (5) Benign essential hypertension: Plan: -See #2 Plan: -Plan of care discussed with Dr. Arana History of Present Illness Chief Complaint: Altered mental status Primary Care Provider: Juma Shah MD Mrs. Kay Morrow is an 85-year-old white female with an underlying past medical history of atrial fibrillation, CAD, CKD, and lumbago. She is a limited historian due to some expressive aphasia. Son is at bedside. Was last known well around 530 last evening. Son reports that she has been seeing the pain clinic for the past 3 days for epidural lumbar injections. He took her to her appointment yesterday and dropped her back off at home around 530. She was in her usual state of health. When he picked her up at 11 today she seemed to walk into the car without any difficulty. As soon as she started to speak, he could tell something was not right. It appeared his if she "could not get the right words out". Son proceeded to take patient to the pain clinic where she was evaluated by nursing staff and sent to the emergency department for evaluation. Upon presentation to the ED, BP was elevated at 214/132. She does take losartan and metoprolol and is able to tell me that she did not take these medications today. In addition, she has been off of her Eliquis X 5 days (on account of the epidural lumbar injections that were being performed). She was to have an injection today but this was not done on account of her slurred speech. Last injection was yesterday. When asked, she reports that she did not eat breakfast as she was supposed to have nothing to eat or drink in preparation of the injection today. Son reports that she did not have trouble walking into the car with her cane or walking into the doctor's office. Her lab data is unremarkable. Covid test is negative. CT of the head shows no evidence of hemorrhage or acute CVA. CTA of the head and neck are unremarkable. Chest x-ray is unremarkable. She will be hospitalized for further evaluation and care. Allergies Allergy/AdvReac Type Severity Reaction Status Date / Time Sulfa (Sulfonamide Allergy Intermediate RASH AND Verified 12/13/20 13:44 Antibiotics) NAUSEA amoxicillin AdvReac Intermediate GI SYMPTOMS Verified 12/13/20 13:44 citalopram AdvReac Intermediate severe Verified 12/13/20 13:44 fatigue lisinopril AdvReac Intermediate COUGH Verified 12/13/20 13:44 Home Medications Medication Instructions Recorded Confirmed Type niacinamide 500 mg tablet 500 mg PO BID 01/13/20 12/13/20 History atenolol 100 mg tablet 100 mg PO BID #180 tab 03/29/20 12/13/20 Rx losartan 100 mg tablet 100 mg PO QAM #90 tab 05/21/20 12/13/20 Rx calcium carbonate 600 mg calcium 1,200 mg PO DAILY tab 06/12/20 12/13/20 History (1,500 mg) tablet magnesium oxide 500 mg PO QAM tab 06/12/20 12/13/20 History triamcinolone acetonide 0.1 % 1 applic TOPICAL DAILY PRN 06/12/20 12/13/20 History topical cream apixaban 5 mg tablet (Eliquis) 5 mg PO BID #180 tab 07/19/20 12/13/20 Rx potassium chloride 10 mEq 10 meq PO QAM #90 cap 09/27/20 12/13/20 Rx capsule,extended release duloxetine 30 mg capsule,delayed 30 mg PO QAM #90 cap 10/01/20 12/13/20 Rx release atorvastatin 10 mg tablet 10 mg PO HS #90 tab 10/08/20 12/13/20 Rx trospium 20 mg tablet 20 mg PO .QHS #30 tab 11/06/20 12/13/20 Rx benzonatate 100 mg capsule 100 mg PO TID PRN #30 cap 11/20/20 12/13/20 Rx (Gabi Roach) Past Med/Surg History Medical History Adjustment disorder with depressed mood Atrial fibrillation Permanent. On eliquis - follows w/ dr. eddy Benign essential hypertension CAD (coronary artery disease) s/p cardiac cath 2017 @ [facility], "Mild non-obstructive coronary artery disease" Chest heaviness Chronic back pain Chronic hip pain after total replacement of left hip joint Controlled diabetes mellitus PCP monitoring, "diet controlled." Degenerative joint disease of right hip Herniated intervertebral disc History of basal cell carcinoma History of SCC (squamous cell carcinoma) of skin Hyperlipidemia Osteoarthritis of right hip Osteoporosis Right shoulder pain Tricuspid valve insufficiency MODERATE-SEVERE ON 01/2019 ECHO. Asymptomatic. Cardio monitoring, will rpt echo ~04/2020 Urinary incontinence Urinary incontinence Surgical History History of cardiac catheterization 2016 [place] - no stents History of cataract surgery History of cholecystectomy History of colonoscopy History of hysterectomy History of left hip replacement 2011 History of Mohs micrographic surgery for skin cancer History of tonsillectomy History of tooth extraction History of total right hip replacement 05/11/20 History of tubal ligation S/P hip replacement Family History Mother Diabetes Cerebral infarction Hypertension Brother Diabetes Hypertension Other No family history of adverse response to anesthesia Social History Smoking Status: Unknown if ever smoked Second Hand Exposure: Yes (MOM SMOKED); Hx Alcohol Use: Yes Alcohol type: wine Hx Substance Use: No Preferred Language: Moldovan Communication Ability: Effective Visual Impairment: No Limitations Hearing Ability: Hard of Hearing In Flight [employer] Required: No Beliefs That Will Affect Care: None marital status: / Current Living Situation: Alone Current Living Situation Comment: [facility] > [facility] current occupational status: retired Feels Safe at Home: Yes Childhood Exposure to Second-Hand Smoke: Yes Dental Care, Regularly: Yes Physical Activity Frequency: 3-4 Times per Week Seatbelt Use: always Sunscreen Use: No (Pt states she does not go in the sun) Assistive Devices: Walker Review of Systems 2 Review of Systems: Limited. Patient is able to answer yes and no. All systems reviewed and are unremarkable except as noted in HPI and below Admits that she knows what she wants to say but cannot get the words out. Denies fevers, chills, headache, nasal congestion, sore throat, trouble swallowing, cough, chest pain, shortness of breath, palpitations, orthopnea, PND, abdominal pain, nausea, vomiting, diarrhea, constipation, dysuria, hematuria, frequency, back pain, joint pain or swelling, easy bruising or bleeding, skin lesions or rashes. Denies weakness in her arms or legs or difficulty ambulating. Physical Exam Physical Exam: Does seem to be able to follow simple commands but has difficulty with complex tasks General: Resting comfortably in her hospital bed. NAD. HEENT: Head is AT/NC buccal mucosa is moist and pink. Tongue and uvula are midline. No facial droop Neck: No JVD. Negative hepatojugular reflex Cardiac: Irregularly irregular with controlled ventricular rate Lungs: CTA without W/R/R Abdomen: Normoactive X4. Soft and nontender in all quadrants. Extremities: No peripheral clubbing cyanosis or edema Neuro: Difficult to assess orientation as patient has clear expressive aphasia. Her speech is somewhat garbled. She is talkative but nonsensical. Seems to be aware of the words that she wants to say but unable to get them out. When assessing CN, unable to determine if patient if patient is having visual deficits as she seems to have difficulty cooperating with complex tasks when assessing peripheral vision. Otherwise, tongue is midline. Uvula midline. Sensation to the face intact along forehead, cheek, and chin. No facial droop. Shoulder shrug intact. Patient has a negative modified pronator drift/Romberg. Downward Babinski. [employer] strength intact and symmetrical bilaterally. Skin: No obvious skin lesions or rashes Psych: Appropriate affect pleasant and cooperative Results & Data Results & Data ([facility]) Vital Signs (Past 12 Hours) Vital Signs Temp Pulse Pulse Resp BP BP Pulse Ox 12/13/20 17:31 89 26 H 178/128 H 96 12/13/20 17:05 86 20 213/131 H 96 12/13/20 16:40 74 20 214/132 H 95 12/13/20 16:16 80 18 200/113 H 98 12/13/20 16:01 74 24 185/124 H 94 12/13/20 15:41 97 12/13/20 15:25 36.4 C L 86 26 H 203/127 H 89 L Laboratory Results 12/13/20 15:30 12/13/20 15:30 Covid: Negative Diagnostic Findings CT of the head without contrast: IMPRESSION: There is no hemorrhage, mass effect, or evidence of acute territorial ischemia by CT criteria. CTA of the head and neck IMPRESSION: 1. There is no evidence of hemorrhage, mass effect, or acute territorial noting angiographic phase technique. 2. The left vertebral artery is dominant and widely patent. The right vertebral artery is diminutive and terminates at the skull base. This is likely chronic. 3. Otherwise unremarkable CT angiograms of the head and neck. CXR: IMPRESSION: Cardiomegaly with suggestion of mild pulmonary edema. hall monitor shows atrial fibrillation with controlled rate EKG shows atrial fibrillation with a rate of [address]/T wave changes Code Status & VTE Plan VTE Prophylaxis Plan VTE Prophylaxis will be ordered: Yes Supervising Physician Co-Signing Physician Notes I personally saw and examined the patient. I verified all evans points and agree with Kiersten Mclean PA-C with the following exceptions and/or additions: 85 year old female presents to the ER with expressive dysphasia. Patient did not take her usual anti-hypertensives today. For full history see above. O/E HS irregularly irregular, Chest CTAB, speech exam - word salad present, no dysphonia, VII, XII, IX speech intact, mild dysarthria, follows one step commands. No extremity weakness or change in sensation. EOMI although difficulty following these commands she denies diplopia, PERRL, No facial numbness or droop. Hearing at baseline. Tongue protrusion normal, uvula central. Shrugging and lateral head rotation equal. A/P Stroke-like symptoms - expressive dysphasia, no other significant focal neurology on exam, MRI brain - w/o CVA, suspect hypertensive encephalopathy but unable to r/o TIA, hold off antiplatelets as restarting on anticoagulation with lovenox (unable to swallow Eliquis at present time), can more aggressively reduce BP < 180 now CVA ruled out on MRI. PG Care Time/CCT Total # of Minutes Spent Total Time Spent with Patient: Total time spent is greater than 50% in coordination of care (as documented) at patient's floor/unit and/or counseling patient: [place] [address] Initial Inpt Care Lvl 3 Patient Type New Medical Decision Making High Complexity Diagnoses Expressive aphasia R47.01 Hypertensive urgency I16.0 Atrial fibrillation, permanent I48.21 CAD (coronary artery disease) I25.10 Benign essential hypertension I10
[2020-12-13] MEDS ORDERED: PROMETHAZINE 12.5 MG/50.5 ML BAG IV STA (18:22)
--- NOTE | 2020-12-13 18:42 | Magnetic Resonance Report ---
Brain MRI WITHOUT CONTRAST HISTORY: expressive dysphasia TECHNIQUE: Multiplanar multisequence MRI of the brain was performed without the use of contrast. COMPARISON STUDY: Head CT 12/13/2020. FINDINGS: Questionable focus of restricted diffusion within the left temporal lobe on image 10 appear s to represent artifact. Otherwise, no areas restricted diffusion to suggest acute infarction. The mi dline structures are intact. The paranasal sinuses and left mastoid air cells are clear. There is a t race right mastoid effusion. The major vascular flow-voids at the skull base are well-maintained. The ventricles and sulci demonstrate mild age-related involutional changes. There is no mass, hematoma, midline shift. Evidence for prior bilateral lens replacement. Patchy periventricular white matter T2 hyperintensity is nonspecific but favors mild microvascular ischemic change. IMPRESSION: No acute intracranial abnormality. Scattered foci of T2 hyperintensity seen within the periventricula r and subcortical white matter are nonspecific but favor microvascular ischemic change. ACT 112: Negative or not required by law. Electronically signed by: Amandeep Diego M.D. 12/13/2020 6:41 PM
[2020-12-13] MEDS ORDERED: hydrALAZINE HCL 20 MG/ML VIAL IV PRN (19:54)
[2020-12-13] MEDS: METOPROLOL TARTRATE 1 MG/ML VIAL IV SCH (20:46)
[2020-12-13] MEDS: ENOXAPARIN 80 MG/0.8 ML SYR SQ SCH (20:56)
--- NOTE | 2020-12-13 22:57 | Electrocardiogram Report ---
Test Reason : Blood Pressure : / mmHG Vent. Rate : 091 BPM Atrial Rate : 288 BPM P-R Int : 000 ms QRS Dur : 080 ms QT Int : 354 ms P-R-T Axes : 000 053 005 degrees QTc Int : 435 ms Poor data quality, interpretation may be adversely affected Atrial fibrillation Nonspecific ST abnormality Abnormal ECG When compared with ECG of 13-JAN-2020 13:25, No significant change was found Confirmed by Samir Esteves ([id number]) on 12/13/2020 10:56:57 PM Referred By: REFERRED SELF Confirmed By:Samir Esteves
[2020-12-14] MEDS: METOPROLOL TARTRATE 1 MG/ML VIAL IV SCH ×2 (00:43→06:15)
[2020-12-14] MEDS: ENOXAPARIN 80 MG/0.8 ML SYR SQ SCH (08:53)
[2020-12-14 09:39] LABS: Basophils # (auto) 0.04 K/uL (0-0.2); Basophils % (auto) 0.4 %; Eosinophils # (auto) 0.03 K/uL (0-0.5); Eosinophils % (auto) 0.3 %; Hematocrit (blood only) 46.3 % (37-47); Hemoglobin 15.5 g/dL (12.0-16.0); Immature Granulocytes # (auto) 0.03 K/uL (0.00-0.02); Immature Granulocytes % (auto) 0.3 %; Lymphocytes # (auto) 2.26 K/uL (1.2-3.4); Lymphocytes % (auto) 23.3 %; Mean Corpuscular Hemoglobin 34.2 pg (25-34); Mean Corpuscular Hgb Conc 33.5 g/dL (32-36); Mean Corpuscular Volume 102.2 fL (80-100); Mean Platelet Volume 10.5 fL (7.4-10.4); Monocytes % (auto) 12.4 %; Neutrophils # (auto) 6.12 K/uL (1.4-6.5); Neutrophils % (auto) 63.3 %; Platelet Count 232 K/uL (130-400); RDW Coefficient of Variation 12.9 % (11.5-14.5); RDW Standard Deviation 48.2 fL (36.4-46.3); Red Blood Count 4.53 M/uL (4.2-5.4); White Blood Count 9.68 K/uL (4.8-10.8)
--- NOTE | 2020-12-14 10:00 | Neurology Consultation ---
Date of Consultation December 14, 2020 Assessment & Plan (1) Expressive aphasia: (2) Hypertensive urgency: (3) Atrial fibrillation, permanent: (4) Lumbar radiculopathy, chronic: Patient had the acute onset of speech abnormalities December 13. This is combination of dysarthria and word-finding difficulties / expressive aphasia. It was mild and is largely resolved currently. There is some slight dysarthria left. She has no other focal neurologic findings, meningeal signs, or encephalopathy. The etiology of this is likely secondary to vasospasm from hypertension. A true TIA cannot be excluded and she does have evidence of mild to moderate old small vessel ischemic disease. She is in atrial fibrillation and Eliquis was stopped for a week for injection procedures, but she had no evidence of stroke on MRI. Patient has a history of lumbar pain but she has no radicular symptoms,. Recommendations: 1. Restart Eliquis 2. Initiate 81 mg aspirin daily as this will help prevent small vessel ischemic disease ( as Eliquis cannot ). 3. Increase activity as able. 4. Control blood pressure as you are doing, aiming for a mean arterial pressure of 95-100. 5. at this point, I would suggest that she does not get her 3rd lumbar epidural injection. Overall, I spent a total of 100 minutes with this case, including review of records, review of CT and MRI films, direct evaluation the patient at bedside, and discussion of the case with the patient and RN at bedside, and Joanne Mclean, including differential diagnosis and treatment options. History of Present Illness Reason for Consultation: Patient is an 85-year-old, who I was asked to see at the request of Joanne Mclean PA-C., for neurologic evaluation regarding possible stroke. Requesting Physician: Dr. Arana Attending Physician: Federico Garcia DO History of Present Illness this patient has a history of coronary artery disease, tricuspid valve insufficiency and permanent atrial fibrillation on Eliquis. She also has diagnoses of type 2 diabetes, chronic kidney disease, hypertension, and dyslipidemia. The patient has chronic low back pain ( no radicular symptoms in either leg) and was getting epidural injections this week at pain management. She received injections on December 11 and December 12. When she came back from her injection at 1730 on December 12 she was doing very well. She woke up the next morning on December 13 and thought she was doing very well also. She talked to several family members in the morning and felt that her speech and language was normal. Around 1300 she was picked up by her son to go to her 3rd epidural injection but noticed that she was "talking funny". She knew what she wanted to say but words were not coming out well and they were somewhat slurred.She did not get the 3rd injection. She arrived to the emergency room December 13 at 3:25 p.m. with a temperature of 36.4, pulse 86 and regular, respiratory rate 26, blood pressure 203/107, and O2 saturation 89%. Later on it O2 saturation was 97% but blood pressure remaine d quite elevated. She was noted to have trouble getting words out clinically but had no other focal neurologic findings. She did not have any significant pain or headaches. She did have some slight eye burning bilaterally but no other headache. CBC and Chem profile were unremarkable all creatinine was 1.28. CT scan of the head was unremarkable. CT angiography of the head showed no vascular anomalies or stenoses. CT angiography of the neck was unremarkable although the right vertebral artery was small and the left was dominant and patent. This is likely longstanding. MRI of the brain showed no acute stroke. There was buav-uu-vauichbk old small vessel ischemic changes and generalized atrophy. Today she feels almost back to normal. She wonders if her speech is just a yumiko le bit off still but she has no other issues including no pain or numbness. Blood pressure this morning was 148/72. Overnight she was in AFib with a controlled rate in the 80s and 90s. Triglycerides were 90 and total cholesterol 124. Allergies Allergy/AdvReac Type Severity Reaction Status Date / Time Sulfa (Sulfonamide Allergy Intermediate RASH AND Verified 12/13/20 13:44 Antibiotics) NAUSEA amoxicillin AdvReac Intermediate GI SYMPTOMS Verified 12/13/20 13:44 citalopram AdvReac Intermediate severe Verified 12/13/20 13:44 fatigue lisinopril AdvReac Intermediate COUGH Verified 12/13/20 13:44 Home Medications Medication Instructions Recorded Confirmed Type niacinamide 500 mg tablet 500 mg PO BID 01/13/20 12/13/20 History atenolol 100 mg tablet 100 mg PO BID #180 tab 03/29/20 12/13/20 Rx losartan 100 mg tablet 100 mg PO QAM #90 tab 05/21/20 12/13/20 Rx calcium carbonate 600 mg calcium 1,200 mg PO DAILY tab 06/12/20 12/13/20 History (1,500 mg) tablet magnesium oxide 500 mg PO QAM tab 06/12/20 12/13/20 History triamcinolone acetonide 0.1 % 1 applic TOPICAL DAILY PRN 06/12/20 12/13/20 History topical cream apixaban 5 mg tablet (Eliquis) 5 mg PO BID #180 tab 07/19/20 12/13/20 Rx potassium chloride 10 mEq 10 meq PO QAM #90 cap 09/27/20 12/13/20 Rx capsule,extended release duloxetine 30 mg capsule,delayed 30 mg PO QAM #90 cap 10/01/20 12/13/20 Rx release atorvastatin 10 mg tablet 10 mg PO HS #90 tab 10/08/20 12/13/20 Rx trospium 20 mg tablet 20 mg PO .QHS #30 tab 11/06/20 12/13/20 Rx benzonatate 100 mg capsule 100 mg PO TID PRN #30 cap 11/20/20 12/13/20 Rx (Gabi Roach) Patient History Medical History Adjustment disorder with depressed mood Atrial fibrillation Permanent. On eliquis - follows w/ dr. eddy Benign essential hypertension CAD (coronary artery disease) s/p cardiac cath 2017 @ [facility], "Mild non-obstructive coronary artery disease" Chest heaviness Chronic back pain Chronic hip pain after total replacement of left hip joint Controlled diabetes mellitus PCP monitoring, "diet controlled." Degenerative joint disease of right hip Herniated intervertebral disc History of basal cell carcinoma History of SCC (squamous cell carcinoma) of skin Hyperlipidemia Osteoarthritis of right hip Osteoporosis Right shoulder pain Tricuspid valve insufficiency MODERATE-SEVERE ON 01/2019 ECHO. Asymptomatic. Cardio monitoring, will rpt echo ~04/2020 Urinary incontinence Urinary incontinence Surgical History History of cardiac catheterization 2016 [place] - no stents History of cataract surgery History of cholecystectomy History of colonoscopy History of hysterectomy History of left hip replacement 2011 History of Mohs micrographic surgery for skin cancer History of tonsillectomy History of tooth extraction History of total right hip replacement 05/11/20 History of tubal ligation S/P hip replacement Family History Mother Diabetes Cerebral infarction Hypertension Brother Diabetes Hypertension Other No family history of adverse response to anesthesia Social History Smoking Status: Unknown if ever smoked Second Hand Exposure: Yes (MOM SMOKED); Hx Alcohol Use: Yes Alcohol type: wine Hx Substance Use: No Preferred Language: Gibraltarian Communication Ability: Impaired Visual Impairment: No Limitations Hearing Ability: Hard of Hearing 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 Beliefs That Will Affect Care: None marital status: / Current Living Situation: Alone [place] [facility] [place] Feels Safe at Home: Yes Childhood Exposure to Second-Hand Smoke: Yes Dental Care, Regularly: Yes Physical Activity Frequency: 3-4 Times per Week Seatbelt Use: always Sunscreen Use: No (Pt states she does not go in the sun) Assistive Devices: Cane Review of Systems Constitutional: no fever, no fatigue and no weakness Eyes: no diplopia, no eye pain and no worsening vision Ear, Nose, Mouth, Throat: no ear pain, no tinnitus, no hearing loss, no dizziness, no snoring, no hoarseness and no dysphagia Respiratory: no cough and no dyspnea Cardiovascular: no chest pain, no palpitations and no lightheadedness Gastrointestinal: no abdominal pain, no nausea and no vomiting Genitourinary: no dysuria, no urinary frequency and no urinary incontinence Musculoskeletal: no back pain, no neck pain, no radicular pain, no joint pain and no myalgia Integumentary: no rash and no lesions Neurologic: + abnormal speech; no gait abnormality, no localized weakness, no generalized weakness, no tingling, no numbness, no tremor(s), no abnormal movements, no headache(s), no confusion and no memory loss Psychiatric: no depression, no irritability, no anxiety, no difficulty concentrating, no confusion and no hallucinations Endocrine: no fatigue and no flushing Hematologic / Lymphatic: no easy bleeding and no easy bruising Allergy / Immunological: no urticaria and no problem reported Exam (Neuro) Physical Exam: The patient is right-handed. The patient is awake, alert, and attentive. Speech is noticeable for some very mild dysarthria. there is no obvious aphasia. The patient can name objects, repeat phrases, and has normal spontaneous speech. Mentation and thought processes are intact, with orientation to person, place and time, and normal fund of knowledge. Attention and concentration are normal. Mood and affect are normal and appropriate. General appearance and grooming are normal. Short and long-term memory are intact. The discs are sharp with positive venous pulsations bilaterally. There are no exudates, hemorrhages, or blood vessel changes seen. Pupils are 3 mm bilaterally and reactive to light. Extraocular eye muscles are intact without nystagmus. Visual acuity and visual macdonald seem normal grossly to confrontation. There are no deficits to sensation in the face in all 3 distributions of the fifth cranial nerve bilaterally. Corneal reflexes are positive bilaterally. Facial strength and symmetry was normal bilaterally. Hearing seems normal bilaterally. Palate moves well without asymmetry. There is normal sternocleidomastoid and trapezius (shoulder shrug) strength bilaterally. Tongue is midline with good strength bilaterally. Neck has a full range of motion without discomfort. There are no cervical bruits bilaterally. There are no cranial or ocular bruits. Heart is without murmur. There is a regular rhythm and rate. Cervical, thoracic, and lumbar spine are nontender to palpation. Gait is narrow based, with good arm swing, turns, and stance. Balance is normal eyes open or closed. With outstretched arms there is no drift. There are no resting, postural, or action tremors. There is no ataxia with finger to nose testing. There is good facility in the hands. No other abnormal involuntary movements are noted. Motor strength is 5/5 diffusely in the arms bilaterally including deltoids, biceps, triceps, brachioradialis, wrist flexors and extensors, accounts manager, and intrinsic hand muscles. Motor strength is 5/5 diffusely in the legs bilaterally including hip flexors, quadriceps, hamstrings, gastrocnemius, tibialis anterior, tibialis posterior, and Peroneii muscles. Toe extensors are normal and there is good bulk in the extensor digitorum brevis muscles bilaterally. The limbs have good tone without rigidity or spasticity. There is no atrophy n oted in the muscles. Muscle bulk is normal, there is no tenderness to palpation, no myotonia to percussion, and no fasciculations seen. Sensory examination is intact to touch and pin throughout all 4 limbs diffusely. Reflexes are 1/4 in the biceps, triceps, brachioradialis, quadriceps, and Achilles tendons bilaterally. There is no clonus bilaterally. Toes are downgoing with plantar stimulation bilaterally. Peripheral pulses are present and of normal quality distally in all 4 limbs. There is no peripheral edema noted in the limbs. Results & Data ([facility]) Vital Signs (Past 12 Hours) Vital Signs Temp Pulse Pulse Resp BP BP BP 12/14/20 08:37 83 12/14/20 07:00 37.0 C 74 18 148/72 H 12/14/20 06:15 86 158/117 H 12/14/20 03:16 36.8 C 85 20 171/94 H 12/14/20 00:43 93 H 186/93 H 12/13/20 23:45 37.2 C 79 16 186/93 H Pulse Ox 12/14/20 08:37 12/14/20 07:00 95 12/14/20 06:15 12/14/20 03:16 92 12/14/20 00:43 12/13/20 23:45 97 PG Care Time/CCT Total # of Minutes Spent Total Time Spent with Patient: Total time spent is greater than 50% in coordination of care (as documented) at patient's floor/unit and/or counseling patient: Coding Level of Care Code 42538 Initial Inpt Care Lvl 3 Diagnoses Expressive aphasia R47.01 Lumbar radiculopathy, chronic M54.16 Hypertensive urgency I16.0 Atrial fibrillation, permanent I48.21 Time Spent (min) 100 Comment Add modifiers as able
[2020-12-14 10:11] LABS: Albumin Level 3.5 gm/dl (3.4-5.0); BUN Creatinine Ratio 12.7 (10-20); Calcium 9.6 mg/dl (8.5-10.1); Creatinine Clr Calc Pharmacy 34.1 ml/min; Est GFR (African American) 48.7 ml/min; Magnesium 2.1 mg/dl (1.8-2.4); Potassium 4.1 mmol/L (3.5-5.1)
[2020-12-14 10:17] LABS: Globulin 3.4 gm/dl (2.5-4.0); Total Protein 6.9 gm/dl (6.4-8.2)
[2020-12-14] MEDS ORDERED: LOSARTAN POTASSIUM 50 MG TAB PO SCH (10:45)
[2020-12-14] MEDS ORDERED: DULoxetine HCL 30 MG CAP PO SCH (10:45)
[2020-12-14] MEDS ORDERED: ATENOLOL 50 MG TABLET PO SCH (10:45)
--- NOTE | 2020-12-14 11:32 | XCELERA ---
[id number]
--- NOTE | 2020-12-14 15:05 | Ultrasound Report ---
DOPPLER ULTRASOUND OF THE RENAL ARTERIES CLINICAL HISTORY: Hypertension. COMPARISON STUDY: No priors. TECHNIQUE: Doppler sonography of the renal arteries was performed to assess renal artery stenosis. Im ages are reviewed in the transverse and longitudinal planes. FINDINGS: The kidneys demonstrate mild cortical atrophy. Echotexture is normal. The right kidney measures 10.2 cm in length and the left kidney measures 9.3 cm in length. There is no hydronephrosis. On the right, intrarenal arterial resistive indices range from 0.60 to 0.67. Intrarenal arterial wave forms are normal with brisk upstrokes. The right renal arterial waveform is normal, and velocities wi thin the right renal artery measure up to 101 cm/sec. The right renal vein is patent. On the left, intrarenal arterial resistive indices range from 0.61 to 0.71. Intrarenal arterial wave forms are normal with brisk upstrokes. The left renal arterial waveform is normal, and velocities wit hin the left renal artery measure up to 67 cm/sec. The left renal vein is patent. The abdominal aorta is patent. Velocities within the abdominal aorta measure up to 92 cm/s. IMPRESSION: There is no sonographic evidence of renal artery stenosis. ACT 112: Negative or not required by law. Electronically signed by: Juma Arias M.D. 12/14/2020 3:04 PM
[2020-12-14] MEDS ORDERED: NIFEdipine EXTENDED REL 30 MG TABCR PO STA (15:37)
--- NOTE | 2020-12-14 17:54 | Discharge Summary ---
Date of Service December 14, 2020 Admission HPI Per Admitting Provider Mrs. Kay Morrow is an 85-year-old white female with an underlying past medical history of atrial fibrillation, CAD, CKD, and lumbago. She is a limited historian due to some expressive aphasia. Son is at bedside. Was last known well around 530 last evening. Son reports that she has been seeing the pain clinic for the past 3 days for epidural lumbar injections. He took her to her appointment yesterday and dropped her back off at home around 530. She was in her usual state of health. When he picked her up at 11 today she seemed to walk into the car without any difficulty. As soon as she started to speak, he could tell something was not right. It appeared his if she "could not get the right words out". Son proceeded to take patient to the pain clinic where she was evaluated by nursing staff and sent to the emergency department for evaluation. Upon presentation to the ED, BP was elevated at 214/132. She does take losartan and metoprolol and is able to tell me that she did not take these medications today. In addition, she has been off of her Eliquis X 5 days (on account of the epidural lumbar injections that were being performed). She was to have an injection today but this was not done on account of her slurred speech. Last injection was yesterday. When asked, she reports that she did not eat breakfast as she was supposed to have nothing to eat or drink in preparation of the injection today. Son reports that she did not have trouble walking into the car with her cane or walking into the doctor's office. Her lab data is unremarkable. Covid test is negative. CT of the head shows no evidence of hemorrhage or acute CVA. CTA of the head and neck are unremarkable. Chest x-ray is unremarkable. She will be hospitalized for further evaluation and care. Admission Exam Per Admitting Provider Does seem to be able to follow simple commands but has difficulty with complex tasks General: Resting comfortably in her hospital bed. NAD. HEENT: Head is AT/NC buccal mucosa is moist and pink. Tongue and uvula are midline. No facial droop Neck: No JVD. Negative hepatojugular reflex Cardiac: Irregularly irregular with controlled ventricular rate Lungs: CTA without W/R/R Abdomen: Normoactive X4. Soft and nontender in all quadrants. Extremities: No peripheral clubbing cyanosis or edema Neuro: Difficult to assess orientation as patient has clear expressive aphasia. Her speech is somewhat garbled. She is talkative but nonsensical. Seems to be aware of the words that she wants to say but unable to get them out. When assessing CN, unable to determine if patient if patient is having visual deficits as she seems to have difficulty cooperating with complex tasks when assessing peripheral vision. Otherwise, tongue is midline. Uvula midline. Sensation to the face intact along forehead, cheek, and chin. No facial droop. Shoulder shrug intact. Patient has a negative modified pronator drift/Romberg. Downward Babinski. Flatwork Presser strength intact and symmetrical bilaterally. Skin: No obvious skin lesions or rashes Psych: Appropriate affect pleasant and cooperative Principal Diagnosis 1. Episodic expressive aphasiaresolved. Etiology: TIA versus hypertensive encephalopathy 2. Hypertensive urgencyimproved/resolved Discharge Exam General: Resting comfortably in her hospital bed. NAD. HEENT: Head is AT/NC buccal mucosa is moist and pink Neck: No JVD. Negative hepatojugular reflex Cardiac: Irregularly irregular with controlled ventricular rate Lungs: CTA without W/R/R Abdomen: Normoactive X4. Soft and nontender in all quadrants. Extremities: No peripheral clubbing cyanosis or edema Neuro: A&O X4 cranial nerves II through XII are grossly intact no focal neuro deficits. Speech is clear. Tongue and uvula midline without deviation. No facial droop. No neurological deficits Skin: No obvious skin lesions or rashes Psych: Appropriate affect pleasant and cooperative Discharge Data Allergies Allergy/AdvReac Type Severity Reaction Status Date / Time Sulfa (Sulfonamide Allergy Intermediate RASH AND Verified 12/13/20 13:44 Antibiotics) NAUSEA amoxicillin AdvReac Intermediate GI SYMPTOMS Verified 12/13/20 13:44 citalopram AdvReac Intermediate severe Verified 12/13/20 13:44 fatigue lisinopril AdvReac Intermediate COUGH Verified 12/13/20 13:44 Consultations 12/13/20 16:19 ED Decision to Admit Stat 12/13/20 19:44 Consult Neurology Routine Assessment & Plan (1) Expressive aphasia: (2) Hypertensive urgency: (3) Atrial fibrillation, permanent: (4) Lumbar radiculopathy, chronic: Patient had the acute onset of speech abnormalities December 13. This is combination of dysarthria and word-finding difficulties / expressive aphasia. It was mild and is largely resolved currently. There is some slight dysarthria left. She has no other focal neurologic findings, meningeal signs, or encephalopathy. The etiology of this is likely secondary to vasospasm from hypertension. A true TIA cannot be excluded and she does have evidence of mild to moderate old small vessel ischemic disease. She is in atrial fibrillation and Eliquis was stopped for a week for injection procedures, but she had no evidence of stroke on MRI. Patient has a history of lumbar pain but she has no radicular symptoms,. Recommendations: 1. Restart Eliquis 2. Initiate 81 mg aspirin daily as this will help prevent small vessel ischemic disease ( as Eliquis cannot ). 3. Increase activity as able. 4. Control blood pressure as you are doing, aiming for a mean arterial pressure of 95-100. 5. at this point, I would suggest that she does not get her 3rd lumbar epidural injection. Overall, I spent a total of 100 minutes with this case, including review of records, review of CT and MRI films, direct evaluation the patient at bedside, and discussion of the case with the patient and RN at bedside, and Joanne Mclean, including differential diagnosis and treatment options. Ordered Studies 12/13/20 14:[address] of the head without contrast: IMPRESSION: There is no hemorrhage, mass effect, or evidence of acute territorial ischemia by CT criteria. CTA of the head and neck IMPRESSION: 1. There is no evidence of hemorrhage, mass effect, or acute territorial noting angiographic phase technique. 2. The left vertebral artery is dominant and widely patent. The right vertebral artery is diminutive and terminates at the skull base. This is likely chronic. 3. Otherwise unremarkable CT angiograms of the head and neck. CXR: IMPRESSION: Cardiomegaly with suggestion of mild pulmonary edema. 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/T wave changes 12/13/20 16:18 MR brain wo con Urgent IMPRESSION: No acute intracranial abnormality. Scattered foci of T2 hyperintensity seen within the periventricular and subcortical white matter are nonspecific but favor microvascular ischemic change. 12/14/20 14:30 US duplex renal artery Routine IMPRESSION: There is no sonographic evidence of renal artery stenosis. Echocardiogram: Left ventricular systolic function normal No regional wall motion abnormalities Mild concentric LV hypertrophy EF 55 to 60%. Moderate TR Mild MR No intra-atrial shunt Hospital Course (1) Expressive aphasia: Mrs. Servin is an 85-year-old white female who was very independent. She still drives and lives alone she has been off of her Eliquis X 5 days as she has been getting epidural lumbar spinal injections. Last known well the night [employer]. Found to have expressive aphasia by the son today -Upon presentation to the ED, she had clear expressive aphasia. She did not seem confused. Seemed to be frustrated that she could not find and expressed the right words. -BP was significantly elevated at 214/132. Had not taken her medications on account of planned epidural lumbar spinal injection -CT of the head, CTA of the head and neck showed no abnormality -Plan was to hospitalize for presumed CVA -She was initially made n.p.o. given the expressive aphasia and risk for aspiration -MRI was performed showing microvascular disease but no evidence of stroke. -By the following morning, her expressive aphasia completely resolved. Blood pressure has since improved (with the addition of Procardia and resumption of her home medications). It is uncertain if she had a TIA or perhaps acute hypertensive encephalopathy -Was seen by neurology who agrees that TIA cannot be ruled out. With microvascular changes seen on MRI, addition of aspirin is tierney. In addition, patient needs to maintain adequate BP control -Was seen by speech therapy and since symptoms have resolved, no need for additional work-up. Patient can have a normal diet. -BP at present is 143/83 -Follow-up with PCP within 7 to 10 days -Neurology myself strongly recommend avoiding the last epidural spinal injection as to avoid with holding BP meds and Eliquis any further (2) Hypertensive urgency: -Patient's BP upon presentation was 214/132 -Typically takes metoprolol and losartanneither which were given on account of plan for spinal injection -Initially an elevated blood pressure was encouraged as it was thought she was having a stroke. When CVA was ruled out, we worked on aggressively improving her BP as hypertensive encephalopathy could have been contributing to her symptomatology -Upfront (when NPO), atenolol was held and she was given routine Lopressor. Once speech cleared, her losartan and atenolol were resumed. She had received a as needed dose of hydralazine. This improved blood pressure temporarily but subsequently it went back up to 190/116. She was started on Procardia and her subsequent blood pressure was 143/83 -A renal artery duplex was performed showing no evidence of renal artery stenosis -Follow-up with PCP (3) Atrial fibrillation, permanent: -Patient takes metoprolol and Eliquis -Given her n.p.o. status, she will be on routine Lopressor IV as outlined above -Pending she does not have a very large stroke on MRI, will start Lovenox (4) CAD (coronary artery disease): -Patient takes beta-blockade, and statin therapy -Another reason why aspirin would be beneficial (5) Benign essential hypertension: -See #2 Discharged home after seen and agreed upon by Dr. Garcia Total Time Total Time Spent Total Time Spent (In Minutes): 90 minutes including time spent with patient, calling [id number], discussion with neurology, discussion with attending physician, and preparation of documentation. Discharge Plan Discharge Items Patient Disposition: Home - Self-Care Reason For Visit: ACUTE CVA Discharge Diagnosis: 1. Episodic Expressive Aphasia-- suspect TIA "mini-stroke" 2. Hypertensive Urgency-- ? hypertensive encephalopathy 3. Activity: Resume your previous activity Non-emergency contact: Primary Care Provider Call non-emergency contact if: you have any medication questions Follow-up/Referrals: Juma Shah MD [Primary Care Provider] - Diet: Heart Healthy Addtl Attending Provider Instructions: -You came to the hospital with expressive aphasia (trouble finding your words) -Your blood pressure was also significantly elevated -You had a CT of the head, CTA of the head/neck, and an MRI of your head --> no evidence of a stroke -Your MRI does show small vessel disease and I cannot say for certain that you did not have a TIA (mini stroke) and actually I am favoring that you likely did -You have been started on a baby Aspirin to help reduce the risk of subsequent events -RESUME your eliquis. Would advise NOT having the 3rd back injection as to not stop your eliquis -Your blood pressure was also very elevated upon presentation to the ED. This could have been contributing to your symptoms. -You have been started on Procardia (in addition to your other antihypertensive agents) to help with blood pressure control -You did have a renal artery ultrasound that shows no evidence of stenosis (as the cause of your uncontrolled blood pressure) -Follow-up with your PCP within 7 to 10 days -Return to the ED for any new or worsening symptoms Pending Studies at Discharge: No Stand-Alone Forms: My [facility] Medications and DC Order Prescriptions: New nifedipine [Procardia XL] 60 mg tablet extended release 24hr 60 mg PO DAILY Qty: 30 RF: 0 Continued atenolol 100 mg tablet 100 mg PO BID Qty: 180 RF: 3 Eliquis 5 mg tablet 5 mg PO BID Qty: 180 RF: 2 potassium chloride 10 mEq capsule, extended release 10 meq PO QAM Qty: 90 RF: 1 duloxetine 30 mg capsule,delayed release(DR/EC) 30 mg PO QAM Qty: 90 RF: 3 atorvastatin 10 mg tablet 10 mg PO HS Qty: 90 RF: 1 losartan 100 mg tablet 100 mg PO QAM Qty: 90 RF: 3 calcium carbonate 600 mg calcium (1,500 mg) tablet 1,200 mg PO DAILY RF: 0 triamcinolone acetonide 0.1 % cream 1 applic topical DAILY PRN (Reason: as directed) RF: 0 benzonatate [Tessalon Perles] 100 mg capsule 100 mg PO TID PRN (Reason: cough) Qty: 30 RF: 0 niacinamide 500 mg tablet 500 mg PO BID RF: 0 trospium 20 mg tablet 20 mg PO .QHS Qty: 30 RF: 11 Hold Instructions: Home Medication placed on hold at Doctor's office magnesium oxide 400 mg magnesium tablet 500 mg PO QAM RF: 0 Discharge Orders: Discharge Order (Routine); Ordered 12/14/20 Ordered By: Joanne Mclean Admission Data Admit Date/Time: 12/13/20 17:40 Attending Provider: Federico Garcia Admit Provider: Cristo Arana Primary Care Provider: Juma Shah Other Providers: Cristo Arana ; Gutierrez Zepeda Other Interventions: Discharge Summary Assessment (RN) Last Done: 12/14/20 17:52 Supervising Physician Co-Signing Physician Notes Patient seen and examined on the day of discharge. I agree with the discharge summary by Joanne VAZQUEZ. I have reviewed the chart including labs, imaging and plans for discharge. patient feeling much better with proper BP control, speech is normal, no focal neurological deficits, eating and drinking well, ambulating independently in the room, wants to go home - Transient aphasia, likely hypertensive urgency though TIA cannot be ruled out, MRI of the brain was negative for a stroke BP back to goal with resuming Losartan, Atenolol and adding nifedipine 60mg daily, continue this on discharge follow up with PCP for BP check in office Coding Level of Care Code Established Pt D/C DAY MANAGEMENT >30 MINS Patient Type Established Diagnoses Expressive aphasia R47.01 Hypertensive urgency I16.0 Atrial fibrillation, permanent I48.21 CAD (coronary artery disease) I25.10 Benign essential hypertension I10 Time Spent (min) 90
== END 2020-12-14 18:38 | disposition home or self-care (01) | DRG 78 ==
LOC: ED 15:06 → SUATTDRO 17:40 → 2S 17:40